=== PATIENT | male | born 1955 | race Caucasian/White ===

== ENCOUNTER 2016-09-21 10:35 | Inpatient (IN) | payer OTHER ==
[~2016-09-21] VITALS: Ht 152.4 cm; Wt 100.0 kg
[~2016-09-21 10:35] MED LIST: ALBU8.5H5 INH; GUAI118L94 PO; IBUP-1542 PO; ZOC20 PO
[2016-09-21] MEDS ORDERED: SOD CHLORIDE 0.9% 1,000 ML IV STA (10:44)
[2016-09-21] MEDS ORDERED: HYDROmorphONE 1 MG/ML SYG IV STA ×2 (10:44→14:41)
[2016-09-21] MEDS ORDERED: ONDANSETRON 4 MG INJ IV STA (10:44)
[2016-09-21 10:46] VITALS: Ht 152.4 cm; Wt 100.0 kg
[2016-09-21] MEDS ORDERED: PANT20TA3 PO (11:30)
[2016-09-21] MEDS ORDERED: GABA300C16 PO (11:30)
[2016-09-21] MEDS ORDERED: BUPR100T14 PO (11:31)
[2016-09-21 11:36] LABS: BASOPHILS % 0.7 % (0.0-2.0); EOSINOPHILS # 0.1 10^3/ul (0.0-0.5); EOSINOPHILS % 1.5 % (0.0-7.0); HEMATOCRIT 46.7 % (42.0-52.0); HEMOGLOBIN 15.6 g/dl (14.0-18.0); LYMPHOCYTES # 1.7 10^3/ul (0.8-2.9); LYMPHOCYTES % 26.6 % (15.0-51.0); MEAN CORPUSCULAR HEMOGLOBIN 33.2 pg (29.0-33.0); MEAN CORPUSCULAR HGB CONC 33.3 g/dl (32.0-37.0); MEAN CORPUSCULAR VOLUME 99.6 fl (82.0-101.0); MEAN PLATELET VOLUME 7.9 fl (7.4-10.4); MONOCYTE # 0.6 10^3/ul (0.3-0.9); NEUTROPHIL # 3.9 10^3/ul (1.6-7.5); NEUTROPHILS % 62.2 % (39.0-77.0); PLATELET COUNT 240 10^3/UL (140-440); RED BLOOD COUNT 4.69 10^6/ul (4.70-6.10); RED CELL DISTRIBUTION WIDTH 13.7 % (11.5-14.5); UNCORRECTED WBC 6.3 10^3/ul (4.8-10.8); WHITE BLOOD COUNT 6.3 10^3/ul (4.8-10.8)
[2016-09-21 11:38] LABS: CONDITION 1
[2016-09-21 11:47] LABS: ALBUMIN 3.6 g/dl (3.3-4.9); POTASSIUM 4.7 mmol/L (3.5-5.1)
[2016-09-21 11:48] LABS: INR 0.9; PROTIME 12.1 Sec (12.2-14.2); PT RATIO 0.9
[2016-09-21 11:49] LABS: CREATININE 0.83 mg/dl (0.61-1.24); PARTIAL THROMBOPLASTIN TIME 29.2 Sec (25.0-35.0)
[2016-09-21 11:50] LABS: ALBUMIN/GLOBULIN RATIO 1.24; BILIRUBIN,INDIRECT 0.1 mg/dl (0-1.1); BILIRUBIN,TOTAL 0.1 mg/dl (0.2-1.3); CALCIUM 9.3 mg/dl (8.4-10.2); TOTAL PROTEIN 6.5 g/dl (6.1-8.1)
--- NOTE | 2016-09-21 12:48 | ERD ---
ER Documentation Chief Complaint Date/Time DATE: 09/21/16 TIME: 12:44 Chief Complaint LOW BACK PAIN FOR 5 DAYS AND MILD ABD PAIN . NO N/V. HIGH BP HPI 61-year-old male who presents the emergency with lumbar back pain. The patient states that he has been diagnosed with hypertension in the past but does not take any medication. He describes atraumatic lumbar back pain that is moderate , paraspinal present for approximately 5 days. Gradual in onset, no bowel or bladder incontinence and retention. No motor weakness. The patient's blood pressure was noted to be in the 200s via EMS. He also describes mild diffuse abdominal discomfort. ROS All systems reviewed and are negative except as per history of present illness. Medications Home Meds Active Scripts Ibuprofen* (Motrin*) 600 Mg Tab, 600 MG PO Q6H Y for PAIN AND OR ELEVATED TEMP, #30 Prov:KATHY OROZCO. [employer] SCHEDULER 03/08/15 Guaifenesin-Codeine Phosphate* (Guaifenesin* with Codeine Liq) 120 Ml Liquid, 5 ML PO Q4H for COUGH, #4 OZ Prov:KATHY OROZCO. FLIGHT [employer]W SCHEDULER 03/08/15 Albuterol Sulfate* (Albuterol Sulfate* HFA) 8.5 Gm Hfa.aer.ad, 2 PUFF INH Q4 Y for SHORTNESS OF BREATH, #1 EA Prov:KATHY OROZCO. FLIGHT [employer]W SCHEDULER 03/08/15 Reported Medications Bupropion Hcl* (Bupropion Hcl*) 100 Mg Tablet, 100 MG PO BID, TAB 09/21/16 Pantoprazole* (Pantoprazole*) 20 Mg Tablet.dr, 20 MG PO AC BREAKFAST, TAB 09/21/16 Gabapentin* (Gabapentin*) 300 Mg Capsule, 300 MG PO BID, #60 CAP 09/21/16 Simvastatin (Simvastatin) 20 Mg Tablet, 20 MG PO DAILY 05/12/13 Allergies Allergies: Coded Allergies: No Known Allergy (Unverified , 05/12/13) PMhx/Soc History of Surgery: Yes (CHOLECYSTECTOMY, RT ANKLE SURGERY W/ 3 SCREWS AND 2 PINS) Anesthesia Reaction: No Hx Neurological Disorder: No Hx Respiratory Disorders: No Hx Cardiac Disorders: Yes Hx Psychiatric Problems: No Hx Miscellaneous Medical Probl: Yes (NEUROPATHY, HYPERCHOLESTEROLEMIA, GERD) Hx Alcohol Use: Yes (OCCASIONAL DRINKER) Hx Substance Use: Yes (MARIJUANA) Hx Tobacco Use: Yes Smoking Status: Current every day smoker FmHx Family History: No diabetes Physical Exam Vitals Vital Signs Date Time Temp Pulse Resp B/P Pulse Ox O2 Delivery O2 Flow Rate FiO2 09/21/16 14:42 69 18 137/94 95 Room Air 09/21/16 10:46 98.6 64 18 144/86 96 Physical Exam General: Well developed, well nourished, no acute distress Head: Normocephalic, atraumatic. Eyes: Pupils equally reactive, EOM intact ENT: Moist mucous membranes Neck: Supple, no lymphadenopathy Respiratory: Lungs clear bilaterally, no distress Cardiovascular: RRR, no murmurs, rubs, or gallops Abdominal: Soft, non-tender, non-distended, no peritoneal signs, no pulsatile mass Back: No midline tenderness deformities or step-offs : Deferred MSK: No edema, no unilateral swelling, 5/5 strength Neurologic: Alert and oriented, moving all extremities, normal speech, no focal weakness, no cerebellar signs Skin: No rash Psych: Normal mood Result Diagram: 09/21/16 1105 09/21/16 1105 Results 24 hrs Laboratory Tests Test 09/21/16 11:05 Activated Partial Thromboplast Time 29.2Sec Alanine Aminotransferase (ALT/SGPT) 31IU/L Albumin 3.6g/dl Albumin/Globulin Ratio 1.24 Alkaline Phosphatase 83IU/L Anion Gap 17 Aspartate Amino Transf (AST/SGOT) 24IU/L Basophils # 0.010^3/ul Basophils % 0.7% Blood Urea Nitrogen 15mg/dl Calcium Level 9.3mg/dl Carbon Dioxide Level 25mmol/L Chloride Level 105mmol/L Creatinine 0.83mg/dl Direct Bilirubin 0.00mg/dl Eosinophils # 0.110^3/ul Eosinophils % 1.5% Globulin 2.90g/dl Glucose Level 96mg/dl Hematocrit 46.7% Hemoglobin 15.6g/dl INR International Normalized Ratio 0.90 Indirect Bilirubin 0.1mg/dl Lipase 214U/L Lymphocytes # 1.710^3/ul Lymphocytes % 26.6% Mean Corpuscular Hemoglobin 33.2pg Mean Corpuscular Hemoglobin Concent 33.3g/dl Mean Corpuscular Volume 99.6fl Mean Platelet Volume 7.9fl Monocytes # 0.610^3/ul Monocytes % 9.0% Neutrophils # 3.910^3/ul Neutrophils % 62.2% Nucleated Red Blood Cells # 0.010^3/ul Nucleated Red Blood Cells % 0.0/100WBC Platelet Count 39762^3/UL Potassium Level 4.7mmol/L Prothrombin Time 12.1Sec Prothrombin Time Ratio 0.9 Red Blood Count 4.6910^6/ul Red Cell Distribution Width 13.7% Sodium Level 142mmol/L Total Bilirubin 0.1mg/dl Total Protein 6.5g/dl White Blood Count 6.310^3/ul Current Medications Medications (Trade) Dose Ordered Sig/Shola Route PRN Reason Start Time Stop Time Status Last Admin Dose Admin Sodium Chloride (NS) 1,000 ml @ 1,000 mls/hr Q1H STAT IV 09/21/16 10:44 09/21/16 11:43 DC 09/21/16 11:15 Hydromorphone HCl (Dilaudid) 1 mg ONCE STAT IV 09/21/16 10:44 09/21/16 10:46 DC 09/21/16 11:16 Ondansetron HCl (Zofran Inj) 4 mg ONCE STAT IV 09/21/16 10:44 09/21/16 10:46 DC 09/21/16 11:15 IV Flush 10 ml 10 ml STK-MED ONCE .ROUTE 09/21/16 13:15 09/21/16 13:16 DC 09/21/16 13:17 Sodium Chloride 100 ml @ ud STK-MED ONCE .ROUTE 09/21/16 13:15 09/21/16 13:16 DC 09/21/16 13:18 Iohexol (Omnipaque) 100 ml @ ud STK-MED ONCE .ROUTE 09/21/16 13:15 09/21/16 13:16 DC 09/21/16 13:18 Hydromorphone HCl (Dilaudid) 1 mg ONCE STAT IV 09/21/16 14:41 09/21/16 14:42 DC 09/21/16 14:46 Procedures/MDM EKG, MONITORS, & DIAGNOSTIC IMAGING: CT abdomen and pelvis IMPRESSION: 1. Scattered atherosclerotic vascular disease including coronary artery calcifications. There are a few tiny distal abdominal aortic penetrating ulcers , the largest measuring up to 4 mm. 2. 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 3. No other evidence of significant arterial pathology in the abdomen or pelvis. Patent visceral and iliac vasculature. 4. Small hiatal hernia. 5. Multifocal bilateral renal cortical scarring. 6. Status post cholecystectomy. 7. Diverticulosis without evidence of diverticulitis. 8. Tiny periumbilical and small bilateral inguinal hernias containing only fat. 9. Status post cholecystectomy. Chest x-ray: I reviewed and interpreted a 1 view of the chest Mediastinum: No enlargement Cardiac silhouette: No cardiomegaly Airspace: Clear lung gustafson bilaterally without evidence of pneumothorax Bones: No evidence of fracture LAB INTERPRETATION: No significant leukocytosis MEDICAL DECISION MAKING: The patient presents with atraumatic lumbar back pain. The pain seems to be reproducible and musculoskeletal in etiology. The patient's low back pain is unlikely related to serious etiology. The patient exhibits no clinical signs or symptoms and has no history or risk factors to suggest cauda equina, cord compression, epidural abscess, epidural hematoma, acute aortic aneurysm or dissection. However, the patient was noted to have significant hypertension in the field. The patient's blood pressure is normalized now. While this is likely a pain response I cannot rule out acute aortic process especially in the setting of patient's described abdominal discomfort. For this reason I believe he would benefit from CT imaging of the abdomen and pelvis. The patient will be provided pain medication. ER COURSE: The patient's CT imaging shows evidence of iliac dissection. The patient has no evidence of decreased vascular flow to the right lower extremity. His pain is well controlled other than a recurrence that is improved with Dilaudid. The patient's heart rate and blood pressure appropriate, no indication for beta- bryce drip at this time. Continue to monitor. I spoke to the vascular surgeon Dr. Darby, he recommends conservative management and evaluation for possible stenting. Medical surgical admission is appropriate. No further directions at this time. I kept the patient and/or family informed of laboratory and diagnostic imaging results throughout the emergency room course. DISPOSITION PLAN: Medical surgical admission CONSULTATION: Accepting care team and consultations: I discussed the current laboratory data, diagnostic imaging and emergency care provided. Admitting team: Dr. Coats Admitting team indication: Insurance directed Consulting services: Vascular surgeon, Dr. Darby Departure Diagnosis: Primary Impression: Iliac artery dissection Condition: Stable BARTOLOME PEREIRA MD Sep 21, 2016 12:48
[2016-09-21] MEDS ORDERED: SOD CHLORIDE 0.9% 100 ML ONE (13:15)
[2016-09-21] MEDS ORDERED: IOHEXOL 100 ML ONE (13:15)
--- NOTE | 2016-09-21 13:37 | RADRPT ---
PROCEDURE: CT Angiography of the Abdomen and Pelvis. CLINICAL INDICATION: Abdominal pain. Evaluate for dissection. . TECHNIQUE: CT scan of the abdomen and pelvis with contrast was performed on a multi-slice slice CT scanner. The patient was scanned following the uncomplicated intravenous administration of 100 cc of Omnipaque 350. Coronal and sagittal reformatted images were obtained from the axial source image s. Three-dimensional reformatting was performed as part of interpretation. Images were reviewed on a high-resolution PACS workstation. The total exam CTDI equals 40.2 mGy and the total exam DLP equal s 972.5 mGy-cm. COMPARISON: None. FINDINGS: ANGIOGRAM: Scattered soft and calcified plaques identified throughout the distal thoracic and abdominal aorta. There is no evidence of aneurysm, dissection, or intramural hematoma. There are a few tiny penetrat ing ulcers of the distal abdominal aorta the largest measuring up to 4 mm. No flow-limiting lesions are seen. There is a subtle short focal dissection of the lateral aspect of the origin of the right common iliac artery. The common, external, and internal iliac arterial system is otherwise widely p atent. The bilateral common and bilateral superficial femoral arteries are widely patent. The celiac artery, superior mesenteric artery, and inferior mesenteric artery are patent. The bilat eral renal arteries are patent. CT ABDOMEN AND PELVIS: There is mild scarring or atelectasis in the lung bases. Heart size is within normal limits. There is no pericardial effusion or pericardial thickening. Coronary artery calcifications are present. There is a small hiatal hernia. The liver, spleen, and pancreas are normal for this phase of contrast. The gallbladder is surgicall y absent. The adrenal glands are symmetric and normal. There is mild to moderate multi focal bilat eral renal cortical scarring. There is otherwise normal symmetric enhancement of the bilateral kidn eys. There is no evidence of renal calculus or obstructive uropathy. There are no enlarged retroper itoneal lymph nodes. There is no evidence of large or small bowel obstruction. Scattered colonic diverticula are present . There is no CT evidence of diverticulitis. There is mild to moderate retained colonic stool. A normal appendix is identified. No free fluid or fluid collections are identified. No inflammatory changes are seen. There is a tiny periumbilical hernia containing only fat. The prostate is mild to moderately enlarged. There is no evidence of pelvic sidewall lymph node enl argement. No pelvic free fluid is seen. The bladder is within normal limits. There are small bila teral inguinal hernias containing only fat. . There is multilevel mild degenerative changes of the distal thoracic and lumbar spine. . IMPRESSION: 1. Scattered atherosclerotic vascular disease including coronary artery calcifications. There are a few tiny distal abdominal aortic penetrating ulcers, the largest measuring up to 4 mm. 2. 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 3. No other evidence of significant arterial pathology in the abdomen or pelvis. Patent visceral a nd iliac vasculature. 4. Small hiatal hernia. 5. Multifocal bilateral renal cortical scarring. 6. Status post cholecystectomy. 7. Diverticulosis without evidence of diverticulitis. 8. Tiny periumbilical and small bilateral inguinal hernias containing only fat. 9. Status post cholecystectomy. RPTAT: HJBF .Damien Mistry MD, Date Time Electronically viewed and signed by .Damien Mistry MD, on 09/21/2016 13:37 .B/
--- NOTE | 2016-09-21 14:54 | RADRPT ---
PROCEDURE: XR Chest. CLINICAL INDICATION: Abdominal pain TECHNIQUE: Chest AP portable. COMPARISON: 03/08/2015 FINDINGS: The mediastinal structures are unremarkable. The heart is normal in size and configuration. The pu lmonary vascularity is normal. The lung gustafson are unremarkable. No consolidation is identified. The pleural spaces are unremarkable. The axial skeleton is unremarkable. IMPRESSION: No active intrathoracic disease. RPTAT: HGDB .Hasmukh Gonzalez MD, MD Date Time Electronically viewed and signed by .Hasmukh Gonzalez MD, MD on 09/21/2016 14:53 .B/
[2016-09-21] MEDS ORDERED: ACETAMINOPHEN 325 MG TAB PO PRN ×2 (15:30→17:00)
[2016-09-21] MEDS ORDERED: ONDANSETRON 4 MG INJ IV PRN ×2 (15:30→17:00)
[2016-09-21] MEDS ORDERED: hydrALAzine 20 MG INJ IV PRN (17:00)
[2016-09-21] MEDS ORDERED: NACL 0.9% 3 ML SYG IV SCH (17:00)
[2016-09-21] MEDS ORDERED: NA PHOSPHATE/BIPHOS 133 ML ENEMA PR PRN (17:00)
[2016-09-21] MEDS: GUAIFENESIN/CODEINE 5ML CUP PO SCH ×2 (17:00→22:21)
[2016-09-21] MEDS ORDERED: ALBUTEROL 18 GM INHALER INH PRN (17:00)
[2016-09-21] MEDS ORDERED: MAGNESIUM HYDROXIDE 30ML CUP PO PRN (17:00)
[2016-09-21] MEDS ORDERED: ALBUTEROL/IPRATROPIUM (NEB) 3 ML AMP HHN PRN (17:00)
[2016-09-21] MEDS ORDERED: NITROGLYCERIN (SL) 0.4 MG TAB SL PRN (17:00)
[2016-09-21] MEDS ORDERED: morphine 2 MG INJ IV PRN (17:00)
[2016-09-21] MEDS ORDERED: LORAZEPAM 2 MG INJ IV PRN (17:00)
[2016-09-21] MEDS ORDERED: DOCUSATE SODIUM 100 MG CAP PO PRN (17:00)
[2016-09-21 17:30] VITALS: BP 130/68; RESP 18
[2016-09-21 17:33] LABS: INR 0.96; PROTIME 12.8 Sec (12.2-14.2)
[2016-09-21 17:34] LABS: PARTIAL THROMBOPLASTIN TIME 29.2 Sec (25.0-35.0)
[2016-09-21 17:36] LABS: CREATINE KINASE 61 IU/L (23-200)
[2016-09-21 17:47] LABS: CK-MB 0.81 ng/ml (0.0-2.4)
[2016-09-21 17:49] LABS: TROPONIN-I < 0.012 ng/ml (0.00-0.12)
[2016-09-21 18:04] VITALS: BP 134/66; PULSE 59; RESP 18
[2016-09-21] MEDS: SOD CHLORIDE 0.45% 1,000 ML IV SCH (18:30)
[2016-09-21] MEDS ORDERED: GLUCAGON 1 MG INJ IM PRN (20:00)
[2016-09-21] MEDS ORDERED: GLUCOSE GEL 15 GRAM TUBE BUCCAL PRN (20:00)
[2016-09-21] MEDS ORDERED: GLUCOSE GEL 15 GRAM TUBE PO PRN ×2 (20:00)
[2016-09-21] MEDS ORDERED: DEXTROSE 50% 50 ML SYRINGE IV PRN ×2 (20:00)
--- NOTE | 2016-09-21 20:10 | HP ---
DATE OF ADMISSION: 09/21/2016 CHIEF COMPLAINT: Low back pain. HISTORY OF PRESENT ILLNESS: A 61-year-old male with past medical history of GERD, hypertension, and diabetes type 2 who presents with 4 to 5 days of low back pain. He has also been having decreased ambulation ability. He denies any trauma to the back area. He has had prior history of low back pa in, but it has self-resolved apparently. No nausea, no vomiting. He has had mild constipation, but no upper or lower GI bleeding, no fevers or chills, no headaches or dizziness or loss of consciousn ess. No chest pain or shortness of breath. No diarrhea obviously. When he came to the ER, he was found with hypertensive urgency. He also had an imaging study performed, an abdominal angiogram, as there was a concern about possible dissection. He was, in fact, found with a subtle short focal di ssection of the proximal right common iliac artery and the vascular surgeon was called to come and e valuate the patient as well. He denies any lower extremity weakness, no numbness or tingling down t he legs. No bowel or bladder incontinence. He has had mild abdominal discomfort, but no overt pain . PAST MEDICAL HISTORY: As stated above. ALLERGIES: NO KNOWN DRUG ALLERGIES. HOME MEDICATIONS: 1. Motrin 600 mg q.6h. p.r.n. 2. Guaifenesin with codeine q.4h. p.r.n. 3. Albuterol HFA 2 puffs inhaled q.4h. p.r.n. 4. Bupropion 100 mg b.i.d. 5. Protonix 20 mg with breakfast. 6. Gabapentin 300 mg b.i.d. 7. Simvastatin 20 mg daily. PAST SURGICAL HISTORY: Cholecystectomy in the past, right ankle surgery in the past. SOCIAL HISTORY: He smokes weed occasionally. Drinks alcohol occasionally. He does smoke 4 to 5 ci garettes daily for the past 17 years. PHYSICAL EXAMINATION: VITAL SIGNS: T-max 98.6, pulse 64 to 69, respirations 18, blood pressure 137/94, saturating at 95% on room air. GENERAL: The patient is lying in bed, answering questions appropriately. No acute distress. HEENT: Pupils equal, round, react to light. Extraocular muscles intact. NECK: Supple. No thyromegaly. LUNGS: Clear to auscultation bilaterally. CARDIOVASCULAR: S1, S2 heard. No rubs or gallops. ABDOMEN: Soft, nontender. Slightly distended, slightly firm, but no rebound or guarding. Normal b owel sounds. MUSCULOSKELETAL: No lower extremity edema bilaterally. NEUROLOGIC: No focal deficits. No loss of sensation in upper or lower extremities bilaterally. LABORATORIES: CBC is completely normal. The comprehensive metabolic panel is normal. Troponin is negative as well. Lipase is normal. Coags are normal. IMAGING: Again, the CT abdominal angiogram showed the results as mentioned above in the HPI. There are also a few tiny distal abdominal aortic penetrating ulcers, largest measuring up to 4 mm, multi focal bilateral renal cortical scarring, small hiatal hernia, otherwise patent visceral and iliac va sculature, status post cholecystectomy, diverticulosis, but no diverticulitis, tiny periumbilical an d small bilateral inguinal hernias containing only fat. Chest x-ray: No active intrathoracic disea se. ASSESSMENT AND PLAN: A 61-year-old male coming in with low back pain for 4 to 5 days with signs of right iliac artery dissection. 1. Low back pain. Unclear source. Could be secondary to the dissection, although it is small. Th e patient does have a history of what looks like chronic back pain as well. For now, will get a vas cular surgery consult, admit him to med/surg floor. Give him pain control medications with [place] an d morphine p.r.n. as well. Hold all NSAID, given the possible dissection. The patient was explaine d the possible medical options including medical management for now versus possible stent placement. Will discuss with vascular surgery team. Check TSH, A1c, lipid panel as well. 2. Diabetes type 2. Again, check A1c, as well. Will put him on sliding scale insulin. 3. Hypertension. Again, he came in with hypertensive urgency. Blood pressure is presently stable now. Continue current medications as well. 4. History of gastroesophageal reflux disease. Again, put him on PPI. 5. Gastrointestinal prophylaxis, PPI. 6. Deep venous thrombosis prophylaxis. Again, avoid all anticoagulants. Put him on SCDs for now. 7. History of depression. The patient was somewhat tearful at the end of my HPI. He does state a history of depression. His mother recently as well. He does take bupropion as well for depression, so will consider getting a tele psych consult as well after the vascular surgery issues are discussed first. Dictated By: CLYDE RIOS Conf#: [id number] DID#: [id number]
[2016-09-21 20:15] VITALS: BP 136/74; RESP 18
[2016-09-21] MEDS ORDERED: INSULIN ASPART [NOVOLOG] 3 ML PEN SC SCH (21:00)
[2016-09-21] MEDS: SIMVASTATIN 20 MG TAB PO SCH (21:00)
[2016-09-21] MEDS: INSULIN ASPART [NOVOLOG] 3 ML PEN SC SCH (21:00)
[2016-09-21] MEDS: GABAPENTIN 300 MG CAP PO SCH (22:21)
[2016-09-21] MEDS: SENNA TAB PO SCH (22:21)
[2016-09-21] MEDS: BUPROPION 100 MG TAB PO SCH (22:21)
[2016-09-21] MEDS: HYDROCODONE/APAP (5/325) TAB PO PRN (22:22)
[2016-09-21 22:54] LABS: CREATINE KINASE 50 IU/L (23-200)
[2016-09-21 23:27] LABS: CK-MB 0.72 ng/ml (0.0-2.4); TROPONIN-I < 0.012 ng/ml (0.00-0.12)
[2016-09-22] MEDS: GUAIFENESIN/CODEINE 5ML CUP PO SCH ×6 (01:00→21:37)
[2016-09-22] MEDS: ACCUCHECK XX SCH (01:35)
[2016-09-22] MEDS: PANTOPRAZOLE (EC) 40 MG TAB PO SCH (05:09)
[2016-09-22] MEDS: SOD CHLORIDE 0.45% 1,000 ML IV SCH ×2 (05:09→06:53)
[2016-09-22] MEDS: DOCUSATE SODIUM 100 MG CAP PO SCH ×2 (05:09→17:16)
[2016-09-22 05:28] LABS: BASOPHILS % 0.8 % (0.0-2.0); EOSINOPHILS # 0.1 10^3/ul (0.0-0.5); EOSINOPHILS % 1.5 % (0.0-7.0); HEMATOCRIT 44.9 % (42.0-52.0); HEMOGLOBIN 15.1 g/dl (14.0-18.0); LYMPHOCYTES # 1.5 10^3/ul (0.8-2.9); LYMPHOCYTES % 27.8 % (15.0-51.0); MEAN CORPUSCULAR HEMOGLOBIN 33.7 pg (29.0-33.0); MEAN CORPUSCULAR HGB CONC 33.7 g/dl (32.0-37.0); MEAN PLATELET VOLUME 7.8 fl (7.4-10.4); MONOCYTE # 0.5 10^3/ul (0.3-0.9); MONOCYTES % 9.7 % (0.0-11.0); NEUTROPHIL # 3.3 10^3/ul (1.6-7.5); NEUTROPHILS % 60.2 % (39.0-77.0); PLATELET COUNT 236 10^3/UL (140-440); RED BLOOD COUNT 4.49 10^6/ul (4.70-6.10); RED CELL DISTRIBUTION WIDTH 13.9 % (11.5-14.5); UNCORRECTED WBC 5.5 10^3/ul (4.8-10.8); WHITE BLOOD COUNT 5.5 10^3/ul (4.8-10.8)
[2016-09-22 05:35] LABS: CONDITION 1
[2016-09-22 05:46] LABS: POTASSIUM 4.2 mmol/L (3.5-5.1)
[2016-09-22 05:49] LABS: CREATININE 0.9 mg/dl (0.61-1.24)
[2016-09-22 05:50] LABS: CALCIUM 8.8 mg/dl (8.4-10.2); CHOL/HDL RATIO 6.9 RATIO; MAGNESIUM 1.8 mg/dl (1.7-2.5); PHOSPHORUS 4.9 mg/dl (2.5-4.9)
[2016-09-22 06:10] LABS: THYROID STIMULATING HORMONE 1.85 MIU/L (0.465-4.680)
[2016-09-22] MEDS ORDERED: INSULIN ASPART [NOVOLOG] 3 ML PEN SC SCH (07:20)
[2016-09-22] MEDS: INSULIN ASPART [NOVOLOG] 3 ML PEN SC SCH ×4 (07:20→21:00)
[2016-09-22 08:10] VITALS: BP 131/77; RESP 19
[2016-09-22] MEDS: BUPROPION 100 MG TAB PO SCH ×2 (08:59→21:37)
[2016-09-22] MEDS: GABAPENTIN 300 MG CAP PO SCH ×2 (09:00→21:37)
[2016-09-22] MEDS: SENNA TAB PO SCH ×2 (09:00→21:37)
[2016-09-22] MEDS ORDERED: NON-FORMULARY/PATIENT OWN MED (Simvastatin 20 MG) PO SCH (09:00)
--- NOTE | 2016-09-22 11:22 | RADRPT ---
Echocardiogram Report Patient Name: DANETTE CARTER Gender: Male Date: 1955 Study Date: 22-Sep-2016 [employer] Cutting Machine Operator: Sonia Frazier RDCS Location: Ref. Physician: CLYDE LOWE Quality: Good Procedures: Transthoracic echocardiogram with complete 2D, M-Mode, and doppler examination. Indications: Chest Pain. 2D/M Mode Doppler Measurement Value Normal Ranges Measurement Value Normal Ranges LVIDd 2D 4.6 3.5 - 5.6 cm AV Peak [place] 0.9 m/sec LVIDs 2D 2.8 2.1 - 4.1 cm AV Peak PG 3.0 mmHg LVPWd 2D 0.9 0.6 - 1.1 cm LVOT Peak [place] 0.8 m/sec IVSd 2D 0.9 0.6 - 1.1 cm LVOT Peak PG 2.3 mmHg AoR Diam 2D 2.8 2.0 - 3.7 cm MV E Peak [place] 0.5 m/sec EDV 2D 96.8 cm3 MV A Peak [place] 0.7 m/sec ESV 2D 21.5 cm3 MV E/A 0.7 LA Dimen 2D 3.8 2.3 - 4.0 cm MV Decel Time 246 msec MV Decel [place] 2 MV E/A 0.7 Findings Left Ventricle: Normal left ventricular systolic function. Normal left ventricular cavity size. Normal left ventricular wall thickness. Ejection fraction is visually estimated at 65 %. Tissue Doppler/Mitral Doppler indices are consistent with impaired relaxation (Stage I diastolic dysfunction). Right Ventricle: Normal right ventricular size. Normal right ventricular systolic function. Left Atrium: The left atrium is normal in size. Right Atrium: The right atrium is normal in size. Mitral Valve: Normal appearance and function of the mitral valve with trace physiologic regurgitation. Aortic Valve: Normal appearance of the aortic valve. No significant aortic stenosis or insufficiency. Tricuspid Valve: Normal appearance and function of the tricuspid valve with trace physiologic regurgitation. Pericardium: Normal pericardium with no significant pericardial effusion. Aorta: Normal aortic root. IVC: Normal size and normal respiratory collapse consistent with normal right atrial pressure. Conclusions 1.Normal left ventricular systolic function. Normal left ventricular cavity size. Normal left ventricular wall thickness. Ejection fraction is visually estimated at 65 %. Tissue Doppler/Mitral Doppler indices are consistent with impaired relaxation (Stage I diastolic dysfunction). 2.Normal appearance and function of the mitral valve with trace physiologic regurgitation. 3.Normal appearance of the aortic valve. No significant aortic stenosis or insufficiency. 4.Normal appearance and function of the tricuspid valve with trace physiologic regurgitation. Electronically Signed By: Fabrizio Walton 22-Sep-2016 11:21:26 -0800 Patient Name: DANETTE CARTER Study Date: 22-Sep-[id number]
--- NOTE | 2016-09-22 11:42 | PN ---
Date/Time of Note Date/Time of Note DATE: 09/22/16 TIME: 11:38 Assessment/Plan VTE Prophylaxis VTE Prophylaxis Intervention: SCD's Lines/Catheters IV Catheter Type (from Nrsg): Peripheral IV Assessment/Plan Chief Complaint/Hosp Course ASSESSMENT AND PLAN: 61-year-old male coming in with low back pain for 4 to 5 days with signs of right iliac artery dissection. 1. Low back pain. Unclear source. Could be secondary to the dissection, although it appears relatively small on imaging study. The patient does have a history of what looks like chronic back pain as well. - f/u vascular surgery consult rec's, admit him to med/surg floor. - pain control medications with [place] and morphine p.r.n. as well. - Hold all NSAID, given the possible dissection. - The patient was explained the possible medical options including medical management for now versus possible stent placement. Will discuss with vascular surgery team - f/u TSH, A1c, lipid panel as well. - will start muscle relaxant, consider pain mngt consult as well if not improved. 2. Diabetes type 2 - f/u A1c, as well, continue sliding scale insulin. 3. Hypertension. Again, he came in with hypertensive urgency. Blood pressure is presently stable now. - Continue current medications as well. 4. History of gastroesophageal reflux disease - PPI. 5. Gastrointestinal prophylaxis, PPI. 6. Deep venous thrombosis prophylaxis. Again, avoid all anticoagulants - SCDs for now. 7. History of depression. The patient was somewhat tearful at the end of my HPI. He does state a history of depression. His mother recently as well. He does take bupropion as well for depression, - will get tele psych consult as well after the vascular surgery issues are discussed first. Problems: Subjective 24 Hr Interval Summary Free Text/Dictation Pt worked with PT today, but still having some LBP. Awaiting vasc surgery consult as well. Exam/Review of Systems Vital Signs Vitals Vital Signs Date Time Temp Pulse Resp B/P Pulse Ox O2 Delivery O2 Flow Rate FiO2 09/22/16 08:10 97.9 60 19 131/77 98 09/21/16 18:04 Room Air Intake and Output 09/21/16 09/21/16 09/22/16 15:00 23:00 07:00 Intake Total 1740 ml Output Total 700 ml Balance 1040 ml Exam GENERAL: The patient is lying in bed, answering questions appropriately. Mild distress HEENT: Pupils equal, round, react to light. Extraocular muscles intact. NECK: Supple. No thyromegaly. LUNGS: Clear to auscultation bilaterally. CARDIOVASCULAR: S1, S2 heard. No rubs or gallops. ABDOMEN: Soft, nontender. Slightly distended, slightly firm, but no rebound or guarding. Normal bowel sounds. MUSCULOSKELETAL: No lower extremity edema bilaterally. NEUROLOGIC: No focal deficits. No loss of sensation in upper or lower extremities bilaterally. Results Result Diagram: 09/22/16 0416 09/22/16 0416 Results 24 hrs Laboratory Tests Test 09/21/16 16:59 09/21/16 20:42 09/21/16 22:33 09/22/16 04:16 Activated Partial Thromboplast Time 29.2 Creatine Kinase 61 50 Creatine Kinase Index 1.3 1.4 Creatinine Kinase MB (Mass) 0.81 0.72 Free Thyroxine 0.91 INR International Normalized Ratio 0.96 Prothrombin Time 12.8 Prothrombin Time Ratio 1.0 Troponin I < 0.012 < 0.012 Bedside Glucose 110 Anion Gap 14 Basophils # 0.0 Basophils % 0.8 Blood Urea Nitrogen 14 Calcium Level 8.8 Carbon Dioxide Level 28 Chloride Level 102 Cholesterol Level 194 Cholesterol/HDL Ratio 6.9 Creatinine 0.90 Eosinophils # 0.1 Eosinophils % 1.5 Glucose Level 97 HDL Cholesterol 28 L Hematocrit 44.9 Hemoglobin 15.1 Hemoglobin A1c 6.4 H LDL Cholesterol, Calculated 132 Lymphocytes # 1.5 Lymphocytes % 27.8 Magnesium Level 1.8 Mean Corpuscular Hemoglobin 33.7 H Mean Corpuscular Hemoglobin Concent 33.7 Mean Corpuscular Volume 100.0 Mean Platelet Volume 7.8 Monocytes # 0.5 Monocytes % 9.7 Neutrophils # 3.3 Neutrophils % 60.2 Nucleated Red Blood Cells # 0.0 Nucleated Red Blood Cells % 0.0 Phosphorus Level 4.9 Platelet Count 236 Potassium Level 4.2 Red Blood Count 4.49 L Red Cell Distribution Width 13.9 Sodium Level 140 Thyroid Stimulating Hormone (TSH) 1.850 Triglycerides Level 168 H White Blood Count 5.5 Test 09/22/16 07:55 Bedside Glucose 107 Medications Medications Current Medications Ondansetron HCl (Zofran Inj) 4 mg Q6H PRN IV NAUSEA AND/OR VOMITING; Start 09/21 at 17:00 Acetaminophen (Tylenol Tab) 650 mg Q6H PRN PO PAIN LEVEL 1-3 OR FEVER; Start at 17:00 Acetaminophen/ Hydrocodone Bitart ([place] (5/325)) 1 tab Q6H PRN PO MODERATE PAIN LEVEL 4-6 Last administered on 09/21/16 22:22; Admin Dose 1 TAB; Start 09/21 at 17:00 Morphine Sulfate (morphine) 2 mg Q4H PRN IV SEVERE PAIN LEVEL 7-10 Last administered on 09/22/16 08:58; Admin Dose 2 MG; Start 09/21/16 at 17:00 Magnesium Hydroxide (Milk Of Mag) 30 ml DAILY PRN PO CONSTIPATION; Start at 17:00 Sodium Biphosphate/ Sodium Phosphate (Fleet Enema) 133 ml DAILY PRN [place] CONSTIPATION; Start 09/21/16 at 17:00 Pantoprazole 40 mg 40 mg DAILY@06 PO Last administered on 09/22/16 05:09; Admin Dose 40 MG; Start 09/22/16 at 06:00 Sodium Chloride (1/2 NS) 1,000 ml @ 75 mls/hr [id number] IV Last administered on 09/22/16 06:53; Admin Dose 75 MLS/HR; Start 09/21/16 at 16:35 Lorazepam (Ativan) 0.5 mg Q6H PRN IV ANXIETY; Start 09/21/16 at 17:00 Hydralazine HCl (Apresoline) 10 mg Q6H PRN IV ELEVATED BLOOD PRESSURE; Start at 17:00 Clonidine (Catapres) 0.1 mg Q6H PRN PO ELEVATED BLOOD PRESSURE; Start 09/21/16 at 17:00 Nitroglycerin (Nitroglycerin (Sl Tab) 0.4 Mg) 1 tab Q5M PRN SL ANGINA; Start at 17:00 Albuterol (Ventolin Hfa) 2 puff Q4 PRN INH SHORTNESS OF BREATH; Start 09/21/16 at 17:00 Bupropion HCl (Wellbutrin) 100 mg BID PO Last administered on 09/22/16 08:59; Admin Dose 100 MG; Start 09/21/16 at 21:00 Gabapentin (Neurontin) 300 mg BID PO Last administered on 09/22/16 09:00; Admin Dose 300 MG; Start 09/21/16 at 21:00 Guaifenesin/ Codeine Phosphate (Robitussin Ac Liquid Cup) 5 ml Q4H PO Last administered on 09/22/16 05:08; Admin Dose 5 ML; Start 09/21/16 at 17:00 Simvastatin (Zocor) 20 mg HS PO Last administered on 09/21/16 21:00; Admin Dose 20 MG; Start 09/21/16 at 21:00 Influenza Virus Vaccine (Fluzone) 0.5 ml ONCE ONCE IM* ; Start 09/23/16 at 09:00 ; Stop 09/23/16 at 09:01 Docusate Sodium (Colace) 100 mg Q12H PO Last administered on 09/22/16 05:09; Admin Dose 100 MG; Start 09/22/16 at 05:00 Senna (Senokot) 1 tab BID PO Last administered on 09/22/16 09:00; Admin Dose 1 TAB; Start 09/21/16 at 21:00 Diagnostic Test (Pha) (Accucheck) 1 ea 02 XX ; Start 09/22/16 at 02:00 Miscellaneous Information 1 ea NOTE XX ; Start 09/21/16 at 20:00 Glucose (Glutose) 15 gm Q15M PRN PO DECREASED GLUCOSE; Start 09/21/16 at 20:00 Glucose (Glutose) 22.5 gm Q15M PRN PO DECREASED GLUCOSE; Start 09/21/16 at 20:00 Dextrose (D50w Syringe) 25 ml Q15M PRN IV DECREASED GLUCOSE; Start 09/21/16 at 20:00 Dextrose (D50w Syringe) 50 ml Q15M PRN IV DECREASED GLUCOSE; Start 09/21/16 at 20:00 Glucagon (Glucagen) 1 mg Q15M PRN IM DECREASED GLUCOSE; Start 09/21/16 at 20:00 Glucose (Glutose) 15 gm Q15M PRN BUCCAL DECREASED GLUCOSE; Start 09/21/16 at 20: 00 Cyclobenzaprine HCl (Flexeril) 10 mg TID PO ; Start 09/22/16 at 13:00; Status CLYDE AVILA Sep 22, 2016 11:42
[2016-09-22] MEDS: CYCLOBENZAPRINE 10 MG TAB PO SCH ×2 (12:29→21:38)
--- NOTE | 2016-09-22 16:34 | CONS ---
DATE OF ADMISSION: 09/21/2016 DATE OF CONSULTATION: REASON FOR CONSULTATION: Aortic dissection. HISTORY OF PRESENT ILLNESS: This is a _[id number] male who was admitted because of pain that was experienced in the back for the past 5 days. The patient is currently disabled because of an ankle injury in the past. Part of his workup has included a CAT scan of the abdomen which showed a possib le small focal tiny abdominal aortic penetrating ulcer with a dissection in the right common iliac a rtery. Patient has a strong right femoral pulse with no signs of ischemia. PAST MEDICAL HISTORY: Significant for hypertension, chronic pain syndrome, GERD. PAST SURGICAL HISTORY: Positive for ankle surgery. MEDICATIONS: List was reviewed which includes: 1. Zofran. 2. Clonidine. 3. Dilaudid. 4. Robitussin. 5. Protonix. PHYSICAL EXAMINATION: VITAL SIGNS: Blood pressure is 134/66, pulse is 59, respirations 18, saturations 98% on room air, t emperature is 98.2. HEENT: Normocephalic, atraumatic. PERRLA. NECK: Supple. No JVD, no carotid bruits. CARDIOVASCULAR: Regular rate and rhythm. LUNGS: Clear. ABDOMEN: Soft. EXTREMITIES: Warm all the way down to the toes. There are palpable femoral, popliteal and pedal pu lses. No signs of ischemia. LABORATORY VALUES: Significant for a white count of 6.3, hemoglobin is 15.6, platelet count is 240, normal coagulation factors and a creatinine of 0.83. IMPRESSION: 1. Aortic ulceration. 2. Right focal small iliac dissection. RECOMMENDATIONS: Would continue blood pressure control. No plan for surgery at this time. The pat ient will need an elective angiogram with possible stenting of the iliac artery. Discussed with the patient, will discuss with the referring physicians. Dictated By: MAY COOPER/MUNA Conf#: [id number] DID#: [id number]
--- NOTE | 2016-09-22 16:42 | CONS ---
DATE OF ADMISSION: 09/21/2016 DATE OF CONSULTATION: 09/22/2016 HISTORY OF PRESENT ILLNESS: This is a 61-year-old male with a history of GERD, hypertension, diabet es, admitted with a 5-day history of pain in the back. Patient subsequently had a CT angiogram whic h showed a small localized right iliac artery dissection. No evidence of any bleeding. On physical exam, the patient had a strong right femoral pulse. PAST MEDICAL HISTORY: Hypertension, hyperlipidemia, GERD. MEDICATIONS: 1. Motrin. 2. Albuterol. 3. Protonix. 4. Gabapentin. 5. Simvastatin. PAST SURGICAL HISTORY: Cholecystectomy. ALLERGIES: NONE. SOCIAL HISTORY: Positive for smoking. Drinks alcohol occasionally. REVIEW OF SYSTEMS: Negative. PHYSICAL EXAMINATION: VITAL SIGNS: Blood pressure is 131/77, pulse is 60, respirations 19, saturations 98% on room air, t emperature is 97.9. HEENT: Normocephalic, atraumatic. PERRLA. NECK: Supple. No JVD, no carotid bruits. CARDIOVASCULAR: Normal S1, S2. LUNGS: Clear. ABDOMEN: Soft. EXTREMITIES: Warm. There is palpable femoral, popliteal pedal pulses. No signs of ischemia. LABORATORY VALUES: Significant for hemoglobin of 15.1, which is stable. IMPRESSION: Right iliac artery dissection. No signs of any bleeding at the present time. We will continue present care and monitor. No plan for surgery at this time. Dictated By: MAY COOPER/MUNA Conf#: [id number] DID#: [id number]
[2016-09-22 19:59] VITALS: BP 156/74; RESP 20
[2016-09-22 20:00] VITALS: BP 136/74
[2016-09-22] MEDS: SIMVASTATIN 20 MG TAB PO SCH (21:37)
[2016-09-23] MEDS: GUAIFENESIN/CODEINE 5ML CUP PO SCH ×6 (00:39→21:00)
[2016-09-23] MEDS: ACCUCHECK XX SCH (02:00)
[2016-09-23] MEDS: DOCUSATE SODIUM 100 MG CAP PO SCH ×2 (05:15→17:00)
[2016-09-23] MEDS: PANTOPRAZOLE (EC) 40 MG TAB PO SCH (05:15)
[2016-09-23 05:32] LABS: POTASSIUM 4.4 mmol/L (3.5-5.1)
[2016-09-23 05:34] LABS: CREATININE 0.94 mg/dl (0.61-1.24)
[2016-09-23 05:35] LABS: CALCIUM 9.1 mg/dl (8.4-10.2)
[2016-09-23 05:39] LABS: BASOPHILS % 0.5 % (0.0-2.0); EOSINOPHILS # 0.1 10^3/ul (0.0-0.5); EOSINOPHILS % 1.8 % (0.0-7.0); HEMATOCRIT 48.8 % (42.0-52.0); HEMOGLOBIN 16.1 g/dl (14.0-18.0); LYMPHOCYTES % 25.1 % (15.0-51.0); MEAN CORPUSCULAR HEMOGLOBIN 33.1 pg (29.0-33.0); MEAN CORPUSCULAR HGB CONC 33.1 g/dl (32.0-37.0); MEAN PLATELET VOLUME 8.1 fl (7.4-10.4); MONOCYTE # 0.6 10^3/ul (0.3-0.9); MONOCYTES % 7.6 % (0.0-11.0); NEUTROPHIL # 5.1 10^3/ul (1.6-7.5); PLATELET COUNT 233 10^3/UL (140-440); RED BLOOD COUNT 4.88 10^6/ul (4.70-6.10); RED CELL DISTRIBUTION WIDTH 13.5 % (11.5-14.5); UNCORRECTED WBC 7.8 10^3/ul (4.8-10.8); WHITE BLOOD COUNT 7.8 10^3/ul (4.8-10.8)
[2016-09-23 05:44] LABS: CONDITION 1
[2016-09-23] MEDS: INSULIN ASPART [NOVOLOG] 3 ML PEN SC SCH ×4 (07:20→21:00)
[2016-09-23 07:36] VITALS: BP 153/86; RESP 20
[2016-09-23] MEDS: SOD CHLORIDE 0.45% 1,000 ML IV SCH ×2 (08:35→21:11)
[2016-09-23] MEDS: BUPROPION 100 MG TAB PO SCH ×2 (08:47→21:10)
[2016-09-23] MEDS: CYCLOBENZAPRINE 10 MG TAB PO SCH ×3 (08:47→21:10)
[2016-09-23] MEDS: GABAPENTIN 300 MG CAP PO SCH ×2 (08:47→21:09)
[2016-09-23] MEDS: SENNA TAB PO SCH ×2 (08:47→21:09)
[2016-09-23] MEDS ORDERED: INFLUENZA VIRUS VACCINE 0.5 ML (DISPENSING) IM* ONE (09:00)
--- NOTE | 2016-09-23 11:53 | PN ---
Date/Time of Note Date/Time of Note DATE: 09/23/16 TIME: 11:49 Assessment/Plan VTE Prophylaxis VTE Prophylaxis Intervention: SCD's Lines/Catheters IV C[facility]ter Type (from [facility]): Peripheral IV Urinary Cath still in place: No Assessment/Plan Chief Complaint/Hosp Course ASSESSMENT AND PLAN: 61-year-old male coming in with low back pain for 4 to 5 days with signs of right iliac artery dissection. 1. Low back pain. Unclear source. Could be secondary to the dissection, although it appears relatively small on imaging study. The patient does have a history of what looks like chronic back pain as well. - f/u vascular surgery consult rec's, med/surg floor care - pain control medications with [place] and morphine p.r.n. as well. - Hold all NSAID, given the possible dissection. - The patient was explained the possible medical options including medical management for now versus possible stent placement. Per [facility] surgery team, medical mngt for now. - continue flexeril at lower dose TID today, consider pain mngt consult as well if not improved. 2. Diabetes type 2 - A1c = 6.4 - continue sliding scale insulin. 3. Hypertension. Again, he came in with hypertensive urgency. Blood pressure is presently stable now. - Continue current medications as well. 4. History of gastroesophageal reflux disease - PPI. 5. Gastrointestinal prophylaxis, PPI. 6. Deep venous thrombosis prophylaxis. Again, avoid all anticoagulants - SCDs for now. 7. History of depression. The patient was somewhat tearful at the end of my HPI. He does state a history of depression. His mother recently as well. He does take bupropion as well for depression, -awaiting tele psych consult - pending Problems: Subjective 24 Hr Interval Summary Free Text/Dictation Pt has less pain after muscle relaxant added, seen by [facility] surgery team as well. Awaiting tele psych. Exam/Review of Systems Vital Signs Vitals Vital Signs Date Time Temp Pulse Resp B/P Pulse Ox O2 Delivery O2 Flow Rate FiO2 09/23/16 07:36 97.8 63 20 153/86 95 09/22/16 20:00 Room Air 09/22/16 14:00 21 Intake and Output 09/22/16 09/22/16 09/23/16 15:00 23:00 07:00 Intake Total 1990 ml 1700 ml Output Total 1600 ml 1500 ml Balance 390 ml 200 ml Exam GENERAL: The patient is lying in bed, answering questions appropriately. less distress HEENT: Pupils equal, round, react to light. Extraocular muscles intact. NECK: Supple. No thyromegaly. LUNGS: Clear to auscultation bilaterally. CARDIOVASCULAR: S1, S2 heard. No rubs or gallops. ABDOMEN: Soft, nontender. Slightly distended, slightly firm, but no rebound or guarding. Normal bowel sounds. MUSCULOSKELETAL: No lower extremity edema bilaterally. NEUROLOGIC: No focal deficits. No loss of sensation in upper or lower extremities bilaterally. Results Result Diagram: 09/23/16 0435 09/23/16 0435 Results 24 hrs Laboratory Tests Test 09/22/16 11:51 09/22/16 16:43 09/22/16 21:36 09/23/16 04:35 Bedside Glucose 153 142 155 Anion Gap 16 Basophils # 0.0 Basophils % 0.5 Blood Urea Nitrogen 17 Calcium Level 9.1 Carbon Dioxide Level 25 Chloride Level 104 Creatinine 0.94 Eosinophils # 0.1 Eosinophils % 1.8 Glucose Level 106 Hematocrit 48.8 Hemoglobin 16.1 Lymphocytes # 2.0 Lymphocytes % 25.1 Mean Corpuscular Hemoglobin 33.1 H Mean Corpuscular Hemoglobin Concent 33.1 Mean Corpuscular Volume 100.0 Mean Platelet Volume 8.1 Monocytes # 0.6 Monocytes % 7.6 Neutrophils # 5.1 Neutrophils % 65.0 Nucleated Red Blood Cells # 0.0 Nucleated Red Blood Cells % 0.0 Platelet Count 233 Potassium Level 4.4 Red Blood Count 4.88 Red Cell Distribution Width 13.5 Sodium Level 141 White Blood Count 7.8 # Test 09/23/16 07:42 09/23/16 11:47 Bedside Glucose 137 131 Medications Medications Current Medications Ondansetron HCl (Zofran Inj) 4 mg Q6H PRN IV NAUSEA AND/OR VOMITING; Start 09/21 at 17:00 Acetaminophen (Tylenol Tab) 650 mg Q6H PRN PO PAIN LEVEL 1-3 OR FEVER; Start at 17:00 Acetaminophen/ Hydrocodone Bitart ([place] (5/325)) 1 tab Q6H PRN PO MODERATE PAIN LEVEL 4-6 Last administered on 09/21/16t 22:22; Admin Dose 1 TAB; Start 09/21 at 17:00 Morphine Sulfate (morphine) 2 mg Q4H PRN IV SEVERE PAIN LEVEL 7-10 Last administered on 09/22/16 08:58; Admin Dose 2 MG; Start 09/21/16 at 17:00 Magnesium Hydroxide (Milk Of Mag) 30 ml DAILY PRN PO CONSTIPATION; Start at 17:00 Sodium Biphosphate/ Sodium Phosphate (Fleet Enema) 133 ml DAILY PRN [place] CONSTIPATION; Start 09/21/16 at 17:00 Pantoprazole 40 mg 40 mg DAILY@06 PO Last administered on 09/23/16 05:15; Admin Dose 40 MG; Start 09/22/16 at 06:00 Sodium Chloride (1/2 NS) 1,000 ml @ 75 mls/hr [id number] IV Last administered on 09/22/16 06:53; Admin Dose 75 MLS/HR; Start 09/21/16 at 16:35 Lorazepam (Ativan) 0.5 mg Q6H PRN IV ANXIETY; Start 09/21/16 at 17:00 Hydralazine HCl (Apresoline) 10 mg Q6H PRN IV ELEVATED BLOOD PRESSURE; Start at 17:00 Clonidine (Catapres) 0.1 mg Q6H PRN PO ELEVATED BLOOD PRESSURE; Start 09/21/16 at 17:00 Nitroglycerin (Nitroglycerin (Sl Tab) 0.4 Mg) 1 tab Q5M PRN SL ANGINA; Start at 17:00 Albuterol (Ventolin Hfa) 2 puff Q4 PRN INH SHORTNESS OF BREATH; Start 09/21/16 at 17:00 Bupropion HCl (Wellbutrin) 100 mg BID PO Last administered on 09/23/16 08:47; Admin Dose 100 MG; Start 09/21/16 at 21:00 Gabapentin (Neurontin) 300 mg BID PO Last administered on 09/23/16 08:47; Admin Dose 300 MG; Start 09/21/16 at 21:00 Guaifenesin/ Codeine Phosphate (Robitussin Ac Liquid Cup) 5 ml Q4H PO Last administered on 09/23/16 05:15; Admin Dose 5 ML; Start 09/21/16 at 17:00 Simvastatin (Zocor) 20 mg HS PO Last administered on 09/22/16 21:37; Admin Dose 20 MG; Start 09/21/16 at 21:00 Docusate Sodium (Colace) 100 mg Q12H PO Last administered on 09/23/16 05:15; Admin Dose 100 MG; Start 09/22/16 at 05:00 Senna (Senokot) 1 tab BID PO Last administered on 09/23/16 08:47; Admin Dose 1 TAB; Start 09/21/16 at 21:00 Diagnostic Test (Pha) (Accucheck) 1 ea 02 XX ; Start 09/22/16 at 02:00 Miscellaneous Information 1 ea NOTE XX ; Start 09/21/16 at 20:00 Glucose (Glutose) 15 gm Q15M PRN PO DECREASED GLUCOSE; Start 09/21/16 at 20:00 Glucose (Glutose) 22.5 gm Q15M PRN PO DECREASED GLUCOSE; Start 09/21/16 at 20:00 Dextrose (D50w Syringe) 25 ml Q15M PRN IV DECREASED GLUCOSE; Start 09/21/16 at 20:00 Dextrose (D50w Syringe) 50 ml Q15M PRN IV DECREASED GLUCOSE; Start 09/21/16 at 20:00 Glucagon (Glucagen) 1 mg Q15M PRN IM DECREASED GLUCOSE; Start 09/21/16 at 20:00 Glucose (Glutose) 15 gm Q15M PRN BUCCAL DECREASED GLUCOSE; Start 09/21/16 at 20: 00 Cyclobenzaprine HCl (Flexeril) 10 mg TID PO Last administered on 09/23/16 08:47 ; Admin Dose 10 MG; Start 09/22/16 at 13:00 CLYDE LOWE Sep 23, 2016 11:53
[2016-09-23 19:27] VITALS: BP 141/82; RESP 18
[2016-09-23] MEDS: SIMVASTATIN 20 MG TAB PO SCH (21:10)
[2016-09-23 23:59] VITALS: BP 131/70; PULSE 62; RESP 18
[2016-09-24] MEDS: GUAIFENESIN/CODEINE 5ML CUP PO SCH ×6 (01:00→21:05)
[2016-09-24] MEDS: ACCUCHECK XX SCH ×2 (01:21→21:20)
[2016-09-24] MEDS: HYDROCODONE/APAP (5/325) TAB PO PRN ×2 (02:04→18:20)
[2016-09-24 05:24] LABS: BASOPHILS % 0.5 % (0.0-2.0); EOSINOPHILS # 0.2 10^3/ul (0.0-0.5); EOSINOPHILS % 2.6 % (0.0-7.0); HEMATOCRIT 48.2 % (42.0-52.0); HEMOGLOBIN 16.1 g/dl (14.0-18.0); LYMPHOCYTES # 2.2 10^3/ul (0.8-2.9); MEAN CORPUSCULAR HEMOGLOBIN 33.3 pg (29.0-33.0); MEAN CORPUSCULAR HGB CONC 33.4 g/dl (32.0-37.0); MEAN CORPUSCULAR VOLUME 99.8 fl (82.0-101.0); MEAN PLATELET VOLUME 8.1 fl (7.4-10.4); MONOCYTE # 0.6 10^3/ul (0.3-0.9); MONOCYTES % 8.2 % (0.0-11.0); NEUTROPHIL # 4.8 10^3/ul (1.6-7.5); NEUTROPHILS % 60.7 % (39.0-77.0); PLATELET COUNT 234 10^3/UL (140-440); RED BLOOD COUNT 4.83 10^6/ul (4.70-6.10); RED CELL DISTRIBUTION WIDTH 13.5 % (11.5-14.5); UNCORRECTED WBC 7.9 10^3/ul (4.8-10.8); WHITE BLOOD COUNT 7.9 10^3/ul (4.8-10.8)
[2016-09-24 05:30] LABS: CONDITION 1
[2016-09-24 05:44] LABS: POTASSIUM 4.3 mmol/L (3.5-5.1)
[2016-09-24 05:46] LABS: CREATININE 1.07 mg/dl (0.61-1.24)
[2016-09-24 05:47] LABS: CALCIUM 9.2 mg/dl (8.4-10.2)
[2016-09-24] MEDS: PANTOPRAZOLE (EC) 40 MG TAB PO SCH (06:05)
[2016-09-24] MEDS: DOCUSATE SODIUM 100 MG CAP PO SCH ×2 (06:06→18:06)
[2016-09-24] MEDS: INSULIN ASPART [NOVOLOG] 3 ML PEN SC SCH ×4 (07:20→21:00)
[2016-09-24 08:00] VITALS: BP 132/76; RESP 20
[2016-09-24] MEDS: BUPROPION 100 MG TAB PO SCH ×2 (09:06→21:11)
[2016-09-24] MEDS: CYCLOBENZAPRINE 10 MG TAB PO SCH ×3 (09:06→21:11)
[2016-09-24] MEDS: SENNA TAB PO SCH ×2 (09:06→21:10)
[2016-09-24] MEDS: GABAPENTIN 300 MG CAP PO SCH ×2 (09:06→21:11)
[2016-09-24 09:08] VITALS: PULSE 65; RESP 17
--- NOTE | 2016-09-24 11:00 | PN ---
Date/Time of Note Date/Time of Note DATE: 09/24/16 TIME: 10:58 Assessment/Plan VTE Prophylaxis VTE Prophylaxis Intervention: SCD's Lines/Catheters IV Catheter Type (from Nrs): Peripheral IV Urinary Cath still in place: No Assessment/Plan Chief Complaint/Hosp Course ASSESSMENT AND PLAN: 61-year-old male coming in with low back pain for 4 to 5 days with signs of right iliac artery dissection. 1. Low back pain. Unclear source. Could be secondary to the dissection, although it appears relatively small on imaging study. The patient does have a history of what looks like chronic back pain as well. - f/u vascular surgery consult rec's, med/surg floor care - pain control medications with [place] and morphine p.r.n. as well. - Hold all NSAID, given the possible dissection. - The patient was explained the possible medical options including medical management for now versus possible stent placement. Per [facility] surgery team, medical mngt for now. - continue flexeril TID, consider pain mngt consult as well if not improved. 2. Diabetes type 2 - A1c = 6.4 - continue sliding scale insulin. 3. Hypertension. Again, he came in with hypertensive urgency. Blood pressure is presently stable now. - Continue current medications as well. 4. History of gastroesophageal reflux disease - PPI. 5. Gastrointestinal prophylaxis, PPI. 6. Deep venous thrombosis prophylaxis. Again, avoid all anticoagulants - SCDs for now. 7. History of depression - now pt expressing SI. The patient was somewhat tearful at the end of my HPI. He does state a history of depression. His mother recently as well. He does take bupropion as well for depression, -will get PET eval today TROY - pt is medically cleared for any further treatment/transfer to psych facility today - also awaiting tele psych consult - pending Problems: Subjective 24 Hr Interval Summary Free Text/Dictation Some less pain, still awaiting tele psych eval. Pt yesterday expressed SI, and 1 :1 sitter added to room. Exam/Review of Systems Vital Signs Vitals Vital Signs Date Time Temp Pulse Resp B/P Pulse Ox O2 Delivery O2 Flow Rate FiO2 09/24/16 10:41 98 21 09/24/16 10:41 70 20 09/24/16 09:08 Room Air 09/24/16 08:00 97.1 132/76 Intake and Output 09/23/16 09/23/16 09/24/16 15:00 23:00 07:00 Intake Total 1900 ml 1560 ml Output Total 1550 ml 2300 ml Balance 350 ml -740 ml Exam GENERAL: The patient is lying in bed, answering questions appropriately. less distress HEENT: Pupils equal, round, react to light. Extraocular muscles intact. NECK: Supple. No thyromegaly. LUNGS: Clear to auscultation bilaterally. CARDIOVASCULAR: S1, S2 heard. No rubs or gallops. ABDOMEN: Soft, nontender. Slightly distended, slightly firm, but no rebound or guarding. Normal bowel sounds. MUSCULOSKELETAL: No lower extremity edema bilaterally. NEUROLOGIC: No focal deficits. No loss of sensation in upper or lower extremities bilaterally. Results Result Diagram: 09/24/16 0432 09/24/16 0432 Results 24 hrs Laboratory Tests Test 09/23/16 11:47 09/23/16 16:43 09/23/16 21:08 09/24/16 04:32 Bedside Glucose 131 116 132 Anion Gap 15 Basophils # 0.0 Basophils % 0.5 Blood Urea Nitrogen 18 Calcium Level 9.2 Carbon Dioxide Level 27 Chloride Level 104 Creatinine 1.07 Eosinophils # 0.2 Eosinophils % 2.6 Glucose Level 108 Hematocrit 48.2 Hemoglobin 16.1 Lymphocytes # 2.2 Lymphocytes % 28.0 Mean Corpuscular Hemoglobin 33.3 H Mean Corpuscular Hemoglobin Concent 33.4 Mean Corpuscular Volume 99.8 Mean Platelet Volume 8.1 Monocytes # 0.6 Monocytes % 8.2 Neutrophils # 4.8 Neutrophils % 60.7 Nucleated Red Blood Cells # 0.0 Nucleated Red Blood Cells % 0.0 Platelet Count 234 Potassium Level 4.3 Red Blood Count 4.83 Red Cell Distribution Width 13.5 Sodium Level 142 White Blood Count 7.9 Test 09/24/16 07:47 Bedside Glucose 104 Medications Medications Current Medications Ondansetron HCl (Zofran Inj) 4 mg Q6H PRN IV NAUSEA AND/OR VOMITING; Start 09/21 at 17:00 Acetaminophen (Tylenol Tab) 650 mg Q6H PRN PO PAIN LEVEL 1-3 OR FEVER; Start at 17:00 Acetaminophen/ Hydrocodone Bitart ([place] (5/325)) 1 tab Q6H PRN PO MODERATE PAIN LEVEL 4-6 Last administered on 09/24/16 02:04; Admin Dose 1 TAB; Start 09/21 at 17:00 Morphine Sulfate (morphine) 2 mg Q4H PRN IV SEVERE PAIN LEVEL 7-10 Last administered on 09/22/16 08:58; Admin Dose 2 MG; Start 09/21/16 at 17:00 Magnesium Hydroxide (Milk Of Mag) 30 ml DAILY PRN PO CONSTIPATION; Start at 17:00 Sodium Biphosphate/ Sodium Phosphate (Fleet Enema) 133 ml DAILY PRN [place] CONSTIPATION; Start 09/21/16 at 17:00 Pantoprazole 40 mg 40 mg DAILY@06 PO Last administered on 09/24/16 06:05; Admin Dose 40 MG; Start 09/22/16 at 06:00 Sodium Chloride (1/2 NS) 1,000 ml @ 75 mls/hr [id number] IV Last administered on 09/23/16 21:11; Admin Dose 75 MLS/HR; Start 09/21/16 at 16:35 Lorazepam (Ativan) 0.5 mg Q6H PRN IV ANXIETY; Start 09/21/16 at 17:00 Hydralazine HCl (Apresoline) 10 mg Q6H PRN IV ELEVATED BLOOD PRESSURE; Start at 17:00 Clonidine (Catapres) 0.1 mg Q6H PRN PO ELEVATED BLOOD PRESSURE; Start 09/21/16 at 17:00 Nitroglycerin (Nitroglycerin (Sl Tab) 0.4 Mg) 1 tab Q5M PRN SL ANGINA; Start at 17:00 Albuterol (Ventolin Hfa) 2 puff Q4 PRN INH SHORTNESS OF BREATH; Start 09/21/16 at 17:00 Bupropion HCl (Wellbutrin) 100 mg BID PO Last administered on 09/24/16 09:06; Admin Dose 100 MG; Start 09/21/16 at 21:00 Gabapentin (Neurontin) 300 mg BID PO Last administered on 09/24/16 09:06; Admin Dose 300 MG; Start 09/21/16 at 21:00 Guaifenesin/ Codeine Phosphate (Robitussin Ac Liquid Cup) 5 ml Q4H PO Last administered on 09/24/16 09:06; Admin Dose 5 ML; Start 09/21/16 at 17:00 Simvastatin (Zocor) 20 mg HS PO Last administered on 09/23/16 21:10; Admin Dose 20 MG; Start 09/21/16 at 21:00 Docusate Sodium (Colace) 100 mg Q12H PO Last administered on 09/24/16 06:06; Admin Dose 100 MG; Start 09/22/16 at 05:00 Senna (Senokot) 1 tab BID PO Last administered on 09/24/16 09:06; Admin Dose 1 TAB; Start 09/21/16 at 21:00 Diagnostic Test (Pha) (Accucheck) 1 ea 02 XX ; Start 09/22/16 at 02:00 Miscellaneous Information 1 ea NOTE XX ; Start 09/21/16 at 20:00 Glucose (Glutose) 15 gm Q15M PRN PO DECREASED GLUCOSE; Start 09/21/16 at 20:00 Glucose (Glutose) 22.5 gm Q15M PRN PO DECREASED GLUCOSE; Start 09/21/16 at 20:00 Dextrose (D50w Syringe) 25 ml Q15M PRN IV DECREASED GLUCOSE; Start 09/21/16 at 20:00 Dextrose (D50w Syringe) 50 ml Q15M PRN IV DECREASED GLUCOSE; Start 09/21/16 at 20:00 Glucagon (Glucagen) 1 mg Q15M PRN IM DECREASED GLUCOSE; Start 09/21/16 at 20:00 Glucose (Glutose) 15 gm Q15M PRN BUCCAL DECREASED GLUCOSE; Start 09/21/16 at 20: 00 Cyclobenzaprine HCl (Flexeril) 5 mg TID PO Last administered on 09/24/16 09:06 ; Admin Dose 5 MG; Start 09/23/16 at 13:00 CLYDE LOWE Sep 24, 2016 11:00
[2016-09-24] MEDS: SOD CHLORIDE 0.45% 1,000 ML IV SCH (11:59)
[2016-09-24 21:00] VITALS: BP 127/69; PULSE 77; RESP 18
[2016-09-24] MEDS: SIMVASTATIN 20 MG TAB PO SCH (21:11)
[2016-09-25] MEDS: GUAIFENESIN/CODEINE 5ML CUP PO SCH ×4 (00:28→13:00)
[2016-09-25] MEDS: SOD CHLORIDE 0.45% 1,000 ML IV SCH (00:32)
[2016-09-25] MEDS: HYDROCODONE/APAP (5/325) TAB PO PRN ×2 (00:32→15:00)
[2016-09-25] MEDS ORDERED: morphine 4 MG/ML VIAL IV PRN (03:30)
[2016-09-25 05:28] VITALS: BP 128/71; PULSE 77; RESP 18
[2016-09-25 05:50] LABS: CREATININE 1.12 mg/dl (0.61-1.24)
[2016-09-25 05:51] LABS: CALCIUM 8.7 mg/dl (8.4-10.2)
[2016-09-25 05:55] LABS: BASOPHIL # 0.1 10^3/ul (0.0-0.1); BASOPHILS % 0.7 % (0.0-2.0); EOSINOPHILS # 0.3 10^3/ul (0.0-0.5); EOSINOPHILS % 3.5 % (0.0-7.0); HEMATOCRIT 45.3 % (42.0-52.0); HEMOGLOBIN 15.3 g/dl (14.0-18.0); LYMPHOCYTES # 1.8 10^3/ul (0.8-2.9); LYMPHOCYTES % 23.4 % (15.0-51.0); MEAN CORPUSCULAR HEMOGLOBIN 33.6 pg (29.0-33.0); MEAN CORPUSCULAR HGB CONC 33.7 g/dl (32.0-37.0); MEAN CORPUSCULAR VOLUME 99.7 fl (82.0-101.0); MEAN PLATELET VOLUME 8.1 fl (7.4-10.4); MONOCYTE # 0.6 10^3/ul (0.3-0.9); MONOCYTES % 8.1 % (0.0-11.0); NEUTROPHIL # 5.1 10^3/ul (1.6-7.5); NEUTROPHILS % 64.3 % (39.0-77.0); PLATELET COUNT 223 10^3/UL (140-440); RED BLOOD COUNT 4.54 10^6/ul (4.70-6.10); RED CELL DISTRIBUTION WIDTH 13.2 % (11.5-14.5); UNCORRECTED WBC 7.9 10^3/ul (4.8-10.8); WHITE BLOOD COUNT 7.9 10^3/ul (4.8-10.8)
[2016-09-25] MEDS: PANTOPRAZOLE (EC) 40 MG TAB PO SCH (05:56)
[2016-09-25] MEDS: DOCUSATE SODIUM 100 MG CAP PO SCH (05:56)
[2016-09-25 06:00] LABS: CONDITION 1
[2016-09-25 07:14] VITALS: BP 105/55; RESP 16
[2016-09-25] MEDS: INSULIN ASPART [NOVOLOG] 3 ML PEN SC SCH ×2 (07:20→12:42)
[2016-09-25] MEDS: GABAPENTIN 300 MG CAP PO SCH (10:02)
[2016-09-25] MEDS: SENNA TAB PO SCH (10:02)
[2016-09-25] MEDS: BUPROPION 100 MG TAB PO SCH (10:02)
[2016-09-25] MEDS: CYCLOBENZAPRINE 10 MG TAB PO SCH ×2 (10:02→14:48)
--- NOTE | 2016-09-25 11:50 | PN ---
Date/Time of Note Date/Time of Note DATE: 09/25/16 TIME: 11:46 Assessment/Plan VTE Prophylaxis VTE Prophylaxis Intervention: SCD's Lines/Catheters IV Catheter Type (from [facility] Peripheral IV Urinary Cath still in place: No Assessment/Plan Chief Complaint/Hosp Course ASSESSMENT AND PLAN: 61-year-old male coming in with low back pain for 4 to 5 days with signs of right iliac artery dissection. 1. Low back pain. Unclear source. Could be secondary to the dissection, although it appears relatively small on imaging study. The patient does have a history of what looks like chronic back pain as well. - f/u vascular surgery consult rec's, med/surg floor care - pain control medications with [place] and morphine p.r.n. as well. - Hold all NSAID, given the possible dissection. - The patient was explained the possible medical options including medical management for now versus possible stent placement. Per [facility] surgery team, medical mngt for now. - continue flexeril TID, consider pain mngt consult as well if not improved. 2. Diabetes type 2 - A1c = 6.4 - continue sliding scale insulin. 3. Hypertension. Again, he came in with hypertensive urgency. Blood pressure is presently stable now. - Continue current medications as well. 4. History of gastroesophageal reflux disease - PPI. 5. Gastrointestinal prophylaxis, PPI. 6. Deep venous thrombosis prophylaxis. Again, avoid all anticoagulants - SCDs for now. 7. History of depression - now pt expressing SI. The patient was somewhat tearful at the end of my HPI. He does state a history of depression. His mother recently as well. He does take bupropion as well for depression, -again, awaiting t PET eval today and/or tele psych (this was ordered 4 days ago) - pt is medically cleared for any further treatment/transfer to psych facility today Problems: Subjective 24 Hr Interval Summary Free Text/Dictation Still waiting for tele psych and PET eval. Exam/Review of Systems Vital Signs Vitals Vital Signs Date Time Temp Pulse Resp B/P Pulse Ox O2 Delivery O2 Flow Rate FiO2 09/25/16 07:14 98.0 70 16 105/55 93 09/25/16 05:28 Room Air 09/24/16 17:18 21 Intake and Output 09/24/16 09/24/16 09/25/16 14:59 22:59 06:59 Intake Total 590 ml 1950 ml Output Total 500 ml 900 ml Balance 90 ml 1050 ml Exam GENERAL: The patient is lying in bed, answering questions appropriately. less distress HEENT: Pupils equal, round, react to light. Extraocular muscles intact. NECK: Supple. No thyromegaly. LUNGS: Clear to auscultation bilaterally. CARDIOVASCULAR: S1, S2 heard. No rubs or gallops. ABDOMEN: Soft, nontender. Slightly distended, slightly firm, but no rebound or guarding. Normal bowel sounds. MUSCULOSKELETAL: No lower extremity edema bilaterally. NEUROLOGIC: No focal deficits. No loss of sensation in upper or lower extremities bilaterally. Results Result Diagram: 09/25/16 0434 09/25/16 0434 Results 24 hrs Laboratory Tests Test 09/24/16 16:55 09/24/16 20:06 09/25/16 04:34 09/25/16 08:15 Bedside Glucose 195 142 103 Anion Gap 14 Basophils # 0.1 Basophils % 0.7 Blood Urea Nitrogen 20 Calcium Level 8.7 Carbon Dioxide Level 29 Chloride Level 104 Creatinine 1.12 Eosinophils # 0.3 Eosinophils % 3.5 Glucose Level 98 Hematocrit 45.3 Hemoglobin 15.3 Lymphocytes # 1.8 Lymphocytes % 23.4 Mean Corpuscular Hemoglobin 33.6 H Mean Corpuscular Hemoglobin Concent 33.7 Mean Corpuscular Volume 99.7 Mean Platelet Volume 8.1 Monocytes # 0.6 Monocytes % 8.1 Neutrophils # 5.1 Neutrophils % 64.3 Nucleated Red Blood Cells # 0.0 Nucleated Red Blood Cells % 0.0 Platelet Count 223 Potassium Level 4.0 Red Blood Count 4.54 L Red Cell Distribution Width 13.2 Sodium Level 143 White Blood Count 7.9 Medications Medications Current Medications Ondansetron HCl (Zofran Inj) 4 mg Q6H PRN IV NAUSEA AND/OR VOMITING; Start 09/21 at 17:00 Acetaminophen (Tylenol Tab) 650 mg Q6H PRN PO PAIN LEVEL 1-3 OR FEVER; Start at 17:00 Acetaminophen/ Hydrocodone Bitart ([place] (5/325)) 1 tab Q6H PRN PO MODERATE PAIN LEVEL 4-6 Last administered on 09/25/16t 00:32; Admin Dose 1 TAB; Start 09/21 at 17:00 Magnesium Hydroxide (Milk Of Mag) 30 ml DAILY PRN PO CONSTIPATION Last administered on 09/24/16 18:06; Admin Dose 30 ML; Start 09/21/16 at 17:00 Sodium Biphosphate/ Sodium Phosphate (Fleet Enema) 133 ml DAILY PRN ND CONSTIPATION Last administered on 09/24/16 21:14; Admin Dose 133 ML; Start at 17:00 Pantoprazole 40 mg 40 mg DAILY@06 PO Last administered on 09/25/16 05:56; Admin Dose 40 MG; Start 09/22/16 at 06:00 Sodium Chloride (1/2 NS) 1,000 ml @ 75 mls/hr [id number] IV Last administered on 09/25/16 00:32; Admin Dose 75 MLS/HR; Start 09/21/16 at 16:35 Lorazepam (Ativan) 0.5 mg Q6H PRN IV ANXIETY; Start 09/21/16 at 17:00 Hydralazine HCl (Apresoline) 10 mg Q6H PRN IV ELEVATED BLOOD PRESSURE; Start at 17:00 Clonidine (Catapres) 0.1 mg Q6H PRN PO ELEVATED BLOOD PRESSURE; Start 09/21/16 at 17:00 Nitroglycerin (Nitroglycerin (Sl Tab) 0.4 Mg) 1 tab Q5M PRN SL ANGINA; Start at 17:00 Albuterol (Ventolin Hfa) 2 puff Q4 PRN INH SHORTNESS OF BREATH; Start 09/21/16 at 17:00 Bupropion HCl (Wellbutrin) 100 mg BID PO Last administered on 09/25/16 10:02; Admin Dose 100 MG; Start 09/21/16 at 21:00 Gabapentin (Neurontin) 300 mg BID PO Last administered on 09/25/16 10:02; Admin Dose 300 MG; Start 09/21/16 at 21:00 Guaifenesin/ Codeine Phosphate (Robitussin Ac Liquid Cup) 5 ml Q4H PO Last administered on 09/25/16 05:56; Admin Dose 5 ML; Start 09/21/16 at 17:00 Simvastatin (Zocor) 20 mg HS PO Last administered on 09/24/16 21:11; Admin Dose 20 MG; Start 09/21/16 at 21:00 Docusate Sodium (Colace) 100 mg Q12H PO Last administered on 09/25/16 05:56; Admin Dose 100 MG; Start 09/22/16 at 05:00 Senna (Senokot) 1 tab BID PO Last administered on 09/25/16 10:02; Admin Dose 1 TAB; Start 09/21/16 at 21:00 Diagnostic Test (Pha) (Accucheck) 1 ea 02 XX ; Start 09/22/16 at 02:00 Miscellaneous Information 1 ea NOTE XX ; Start 09/21/16 at 20:00 Glucose (Glutose) 15 gm Q15M PRN PO DECREASED GLUCOSE; Start 09/21/16 at 20:00 Glucose (Glutose) 22.5 gm Q15M PRN PO DECREASED GLUCOSE; Start 09/21/16 at 20:00 Dextrose (D50w Syringe) 25 ml Q15M PRN IV DECREASED GLUCOSE; Start 09/21/16 at 20:00 Dextrose (D50w Syringe) 50 ml Q15M PRN IV DECREASED GLUCOSE; Start 09/21/16 at 20:00 Glucagon (Glucagen) 1 mg Q15M PRN IM DECREASED GLUCOSE; Start 09/21/16 at 20:00 Glucose (Glutose) 15 gm Q15M PRN BUCCAL DECREASED GLUCOSE; Start 09/21/16 at 20: 00 Cyclobenzaprine HCl (Flexeril) 5 mg TID PO Last administered on 09/25/16 10:02 ; Admin Dose 5 MG; Start 09/23/16 at 13:00 CLYDE LOWE Sep 25, 2016 11:50
--- NOTE | 2016-09-25 12:37 | PSY ---
Date/Time of Note Date/Time of Note DATE: 09/25/16 TIME: 12:32 Psychiatric Subjective Eval Consent Pt consented to telemedicine: Yes Subjective Evaluation Patient location: inpatient Chief Complaint: LOW BACK PAIN FOR 5 DAYS AND MILD ABD PAIN . NO N/V. HIGH BP Reason for consult: Pt expressed si on admission, spoke with Davis HIGGINS History of present illness 61 yo male with hx schizophrenia admitted due to iliac dissection, on admission epxressed SI:"I will go to [employer] and the police will shoot me". Adamantly denies it now: "I did not mean it like that, I was lonely at home, no food in the fridge, hunglry, sad..I am much better now". Pt denies depression, anixety , feeling hopeless or helpelss, denies AH or Vh, denies si or Hi. Past psychiatric history last inpt was 4 years ago, last SA 20 years ago ptis on Abilify 15 mg and wellbutrin 100 mg bid Hospitalization: Suicidal Attempt(s) Family History denies Medical history Problems Medical Problems: (1) Iliac artery dissection Status: Acute (2) Insect bite Status: Acute (3) Viral bronchitis Status: Acute Allergies: Coded Allergies: No Known Allergy (Unverified , 05/12/13) Substance Abuse Substance abuse history: Yes (thc) Prior substance abuse treatmen: No Social History Marital status: single Level of education: hs DPA/Conservatorship: No Occupation/Snf: on ssi Psychiatric Objective Eval Physical Examination: Sleep: Adequate Appetite: Adequate Energy: Adequate Interest: Adequate Mental Status Examination: Appearance: Groomed Eye Contact: Good Psychomotor Activity: Normal Behavior: Cooperative Speech: Clear AFFECT: Appropriate Mood: Appropriate/Full Though Process: Linear Thought Content: Normal Suicidal: No Homicidal: No On 72 hour hold: No Orientation: x4 Cognition: Alert Insight: Intact Judgement: Intact Laboratory Results Laboratory Tests Test 09/23/16 16:43 09/23/16 21:08 09/24/16 04:32 09/24/16 07:47 Bedside Glucose 116mg/dL 132mg/dL 104mg/dL Anion Gap 15 Basophils # 0.010^3/ul Basophils % 0.5% Blood Urea Nitrogen 18mg/dl Calcium Level 9.2mg/dl Carbon Dioxide Level 27mmol/L Chloride Level 104mmol/L Creatinine 1.07mg/dl Eosinophils # 0.210^3/ul Eosinophils % 2.6% Glucose Level 108mg/dl Hematocrit 48.2% Hemoglobin 16.1g/dl Lymphocytes # 2.210^3/ul Lymphocytes % 28.0% Mean Corpuscular Hemoglobin 33.3pg Mean Corpuscular Hemoglobin Concent 33.4g/dl Mean Corpuscular Volume 99.8fl Mean Platelet Volume 8.1fl Monocytes # 0.610^3/ul Monocytes % 8.2% Neutrophils # 4.810^3/ul Neutrophils % 60.7% Nucleated Red Blood Cells # 0.010^3/ul Nucleated Red Blood Cells % 0.0/100WBC Platelet Count 91974^3/UL Potassium Level 4.3mmol/L Red Blood Count 4.8310^6/ul Red Cell Distribution Width 13.5% Sodium Level 142mmol/L White Blood Count 7.910^3/ul Test 09/24/16 11:39 09/24/16 16:55 09/24/16 20:06 09/25/16 04:34 Bedside Glucose 129mg/dL 195mg/dL 142mg/dL Anion Gap 14 Basophils # 0.110^3/ul Basophils % 0.7% Blood Urea Nitrogen 20mg/dl Calcium Level 8.7mg/dl Carbon Dioxide Level 29mmol/L Chloride Level 104mmol/L Creatinine 1.12mg/dl Eosinophils # 0.310^3/ul Eosinophils % 3.5% Glucose Level 98mg/dl Hematocrit 45.3% Hemoglobin 15.3g/dl Lymphocytes # 1.810^3/ul Lymphocytes % 23.4% Mean Corpuscular Hemoglobin 33.6pg Mean Corpuscular Hemoglobin Concent 33.7g/dl Mean Corpuscular Volume 99.7fl Mean Platelet Volume 8.1fl Monocytes # 0.610^3/ul Monocytes % 8.1% Neutrophils # 5.110^3/ul Neutrophils % 64.3% Nucleated Red Blood Cells # 0.010^3/ul Nucleated Red Blood Cells % 0.0/100WBC Platelet Count 14501^3/UL Potassium Level 4.0mmol/L Red Blood Count 4.5410^6/ul Red Cell Distribution Width 13.2% Sodium Level 143mmol/L White Blood Count 7.910^3/ul Test 09/25/16 08:15 09/25/16 12:13 Bedside Glucose 103mg/dL 229mg/dL Assessment and Plan Assessment/Diagnosis [place] I: SCHIZOAFFECTIVE D/O [place] II: DEFERED [place] III: PER RECORD [place] IV: MODERATE [place] V: GAF 50 Recommendation/Plan Medication Management CONTINUE WELLBUTRIN; PLEASE RESUME ABILIFY 15 MG POQD Psychotherapy DEFER TO OUTPT Pt. Caregiver/Family Education N/A Follow-up/Disposition NO DTS, DTO.GD PT CAN BE TREATED OUTPT; PLEASE REFR TO OUTPT MENTAL HEALTH. 5150 Recommendation: YADIEL Mcneil MD Sep 25, 2016 12:37
--- NOTE | 2016-09-25 14:11 | PDOCDIS ---
Discharge Instructions CONDITION Patient Condition: Stable HOME CARE INSTRUCTIONS: Special Diet: SOFT ACTIVITY: Activity Restrictions: Slowly Increase Activity FOLLOW UP/APPOINTMENTS Appointments Please take your medications as prescribed, and see your doctor in the clinic in 1 week. CLYDE LOWE Sep 25, 2016 14:11
[2016-09-25] MEDS ORDERED: BUPR100T14 PO (14:12)
[2016-09-25] MEDS ORDERED: ARIP5TAB7 PO (14:12)
[2016-09-25] MEDS ORDERED: CYCL-319 PO (14:14)
[2016-09-25] MEDS ORDERED: ARIPIPRAZOLE 5 MG TAB PO SCH (14:30)
--- NOTE | 2016-09-25 15:07 | DS ---
DATE OF ADMISSION: 09/21/2016 DATE OF DISCHARGE: 09/25/2016 This is a 61-year-old male originally admitted on 09/21/2016 being discharged home on 09/25/2016. HOSPITAL COURSE: The patient came in with low back pain. He was admitted to med/surg floor. He martines d a CT abdominal angiogram performed that did show right focal small iliac artery dissection. He wa s evaluated by the vascular surgery team who recommended medical management for now. There were no indications for any stent or other surgical procedures to be performed. The patient also had some a djustments to obtain pain medications as well. He also showed some questionable signs of depression and possible suicide ideation on admission and was continued on his antidepressants. Eventually af ter some delay, he was seen by the psychiatry team as well for that. Afterwards, they determined th at in fact, the patient was not having any suicide or homicide ideations actively. Patient was franky mmended to go back on Abilify and continue Wellbutrin for that. Over the course of his hospital sta y, again, his low back pain symptoms improved. His vital signs remained stable. He had no signs of any further deterioration of his small right iliac artery dissection. His vital signs were monitor ed very carefully. He was able to ambulate and tolerate a p.o. diet. He was started on a muscle re laxant as well and because the patient has been cleared both by vascular surgery team and psychiatry team to be discharged home today in improved condition. DISCHARGE MEDICATIONS: He will be sent with the following medications: 1. Abilify 15 mg p.o. daily. 2. Cyclobenzaprine 5 mg p.o. t.i.d. 3. Albuterol HFA 2 puffs inhaled q.4h. p.r.n. 4. Bupropion HCL 100 mg b.i.d. 5. Gabapentin 300 mg b.i.d. 6. Guaifenesin 5 mL p.o. q.4h. p.r.n. 7. Ibuprofen 600 mg p.o. q. p.r.n. 8. Protonix 20 mg daily. 9. Simvastatin 20 mg daily. He will need to follow up with vascular surgery team in the next 1 to 2 weeks. He may need repeat i maging studies in the next few months to further evaluate his iliac artery dissection. He will need to follow up with his regular psychiatrist as outpatient in next 1 to 2 weeks. FINAL DIAGNOSES: 1. Low back pain, unclear source, could be secondary to a combination of depression in the right il iac artery dissection, although this is medically stable, now improved with pain medicines and muscl e relaxants. 2. Type 2 diabetes. A1c of 6.4. Continue medical conservative management. 3. Hypertension, controlled. 4. Right iliac artery dissection. Small in appearance per vascular surgery team. Continue medical management for now. 5. History of depression with possible suicide ideation in the past, now presently stable on antide pressants. Time spent discharging the patient 45 minutes. Dictated By: CLYDE RIOS Conf#: [id number] DID#: [id number]
== END 2016-09-25 16:25 | disposition home or self-care (01) | DRG 551 ==
LOC: E/R 10:35 → MS1 15:18
PROVIDERS: ADMIT Hospitalist; ATTEND Hospitalist
DX: M54.5 Low back pain (principal); I77.72 Dissection of iliac artery; E11.8 Type 2 diabetes mellitus with unspecified complications; I71.4 Abdominal aortic aneurysm, without rupture; I16.0 Hypertensive urgency; Z72.0 Tobacco use; F32.9 Major depressive disorder, single episode, unspecified; K21.9 Gastro-esophageal reflux disease without esophagitis
CPT/HCPCS: 36415; 71010; 75635; 80048; 80053; 80061; 82550; 82553; 82962; 83036; 83690; 83735; 84100; 84439; 84443; 84484; 85025; 85610; 85730; 90686; 93306; 96374; 96375; 96376; 97116; 97163; 97167; 97530; 97535; J1170; J1815; J2270; J2405; J7030; Q9967

== ENCOUNTER 2017-02-08 15:06 | Emergency (ER) | payer OTHER ==
[~2017-02-08] VITALS: Wt 105.0 kg
[~2017-02-08 15:06] MED LIST changes: +ARIP5TAB7 PO; +BUPR100T14 PO; +CYCL-319 PO; +GABA300C16 PO; +PANT20TA3 PO; +SIMV20TA2 PO; -ZOC20 PO
[2017-02-08] MEDS ORDERED: SULF1TAB31 PO (15:59)
[2017-02-08] MEDS ORDERED: IBUP-1542 PO (15:59)
[2017-02-08] MEDS ORDERED: CLOT30CR24 TOP (15:59)
[2017-02-08] MEDS ORDERED: TRIMETHOPRIM/SULFAMETHOX (DS) TAB PO ONE (16:00)
[2017-02-08] MEDS ORDERED: ACETAMINOPHEN 325 MG TAB PO ONE (16:00)
[2017-02-08] MEDS ORDERED: FLUCONAZOLE 150 MG TAB PO ONE (16:00)
[2017-02-08] MEDS ORDERED: CEFTRIAXONE 1 GM INJ IM ONE (16:00)
[2017-02-08] MEDS ORDERED: LIDOCAINE 1% (MDV) 20 ML INJ SC ONE (16:00)
--- NOTE | 2017-02-08 16:01 | ERD ---
ER Documentation Chief Complaint Date/Time DATE: 02/08/17 TIME: 15:59 Chief Complaint RASH AROUND PENIS 8-9 DAYS HPI This 61-year-old male presents with 10 day history of some pain and redness on his penile foreskin. Patient believes the pain may have started after receiving oral sex for some of the braces on and sustaining a small abrasion. He denies dysuria, fevers, vomiting, or history of diabetes. ROS All systems reviewed and are negative except as per history of present illness. Medications Home Meds Active Scripts Sulfamethoxazole/Trimethoprim* (Bactrim Ds* Tablet) 1 Each Tablet, 1 TAB PO BID , #14 TAB Prov:NICOLE MCKEON MD 02/08/17 Ibuprofen* (Motrin*) 600 Mg Tab, 600 MG PO Q6, #20 TAB Prov:NICOLE MCKEON MD 02/08/17 Clotrimazole* (Clotrimazole* AF) 1% - 30 Gm Cream.gm., 1 APPLIC TOP BID for 10 Days, TUB Prov:NICOLE MCKEON MD 02/08/17 Cyclobenzaprine Hcl* (Cyclobenzaprine Hcl*) 10 Mg Tablet, 5 MG PO TID, #90 TAB Prov:MYNORCLYDE S. 09/25/16 Aripiprazole* (Abilify*) 5 Mg Tab, 15 MG PO DAILY, #30 TAB 3 Refills Prov:RAALLYSONCLYDE S. 09/25/16 Bupropion Hcl* (Bupropion Hcl*) 100 Mg Tablet, 100 MG PO BID, #60 TAB 3 Refills Prov:GARRET LOWECLYDE S. 09/25/16 Ibuprofen* (Motrin*) 600 Mg Tab, 600 MG PO Q6H Y for PAIN AND OR ELEVATED TEMP, #30 Prov:KATHY OROZCO NP 03/08/15 Guaifenesin-Codeine Phosphate* (Guaifenesin* with Codeine Liq) 120 Ml Liquid, 5 ML PO Q4H for COUGH, #4 OZ Prov:KATHY OROZCO NP 03/08/15 Albuterol Sulfate* (Albuterol Sulfate* HFA) 8.5 Gm Hfa.aer.ad, 2 PUFF INH Q4 Y for SHORTNESS OF BREATH, #1 EA Prov:KATHY OROZCO [employer]ORER [employer]AGE 03/08/15 Reported Medications Pantoprazole* (Pantoprazole*) 20 Mg Tablet.dr, 20 MG PO AC BREAKFAST, TAB 09/21/16 Gabapentin* (Gabapentin*) 300 Mg Capsule, 300 MG PO BID, #60 CAP 09/21/16 Simvastatin (Simvastatin) 20 Mg Tablet, 20 MG PO DAILY 05/12/13 Allergies Allergies: Coded Allergies: No Known Allergy (Unverified , 05/12/13) PMhx/Soc History of Surgery: Yes (cholecysectomy; rt ankle surgery;) Anesthesia Reaction: No Hx Neurological Disorder: No Hx Respiratory Disorders: No Hx Cardiac Disorders: Yes (HTN) Hx Psychiatric Problems: Yes (Anxiety and Depression) Hx Miscellaneous Medical Probl: Yes (DM2, HTN, GERD, depression.) Hx Alcohol Use: Yes Hx Substance Use: Yes Hx Tobacco Use: Yes Physical Exam Vitals Vital Signs Date Time Temp Pulse Resp B/P Pulse Ox O2 Delivery O2 Flow Rate FiO2 02/08/17 15:10 98.1 89 18 127/88 99 Physical Exam Const: [] Alert, [id number] per Head: Atraumatic Eyes: Normal Conjunctiva ENT: Normal External Ears, Nose and Mouth. Neck: Full range of motion..~ No meningismus. Resp: Clear to auscultation bilaterally Cardio: Regular rate and rhythm, no murmurs Abd: Soft, non tender, non distended. Normal bowel sounds Skin: No petechiae or rashes. Patient is a genital exam shows uncircumcised penis with some irritation and moisture with a healing abrasion or small ulcer. There is no significant induration or fluctuance. There is no penile discharge. Testicles are nontender normal size bilaterally. Back: No midline or flank tenderness Ext: No cyanosis, or edema Neur: Awake and alert Psych: Normal Mood and Affect Results 24 hrs Current Medications Medications (Trade) Dose Ordered Sig/Shola Route PRN Reason Start Time Stop Time Status Last Admin Dose Admin Ceftriaxone Sodium (Rocephin) 1 gm ONCE ONCE IM 02/08/17 16:00 02/08/17 16:01 Lidocaine (Xylocaine 1% (Mdv) 20 ml) 20 ml ONCE ONCE SC 02/08/17 16:00 02/08/17 16:01 Fluconazole (Diflucan) 150 mg ONCE ONCE PO 02/08/17 16:00 02/08/17 16:01 Acetaminophen (Tylenol Tab) 650 mg ONCE ONCE PO 02/08/17 16:00 02/08/17 16:01 Trimethoprim/ Sulfamethoxazole (Bactrim (Ds)) 1 tab ONCE ONCE PO 02/08/17 16:00 02/08/17 16:01 Procedures/MDM Patient presents with a irritated abrasion on the shaft of his penis with what appears to be likely secondary infection or balanitis. We treated with Rocephin 1 g here by request and Bactrim double strength as well as Diflucan. At home and will be treated with Lotrimin and Bactrim ibuprofen for pain. Patient is advised to follow-up with urology for persistent symptoms. Patient should return for fevers, redness, new worsening symptoms. Patient advised he may need authorization from primary doctor for urology visit. Signs and symptoms do not suggest Erica's gangrene, sepsis, significant cellulitis or abscess. There is no evidence of ischemia. Departure Diagnosis: Primary Impression: Balanitis Additional Impression: Rash Condition: Stable Patient Instructions: Cellulitis, Balanitis Additional Instructions: Rash appears to be infected abrasion or possible fungal infection. We will treat for both. Recheck for new or worsening symptoms with primary care doctor. See urology for persistent symptoms. May need authorization from primary doctor care doctor for urology visit. NICOLE MCKEON MD February 08, 2017 16:01
== END 2017-02-08 16:25 | disposition home or self-care (01) ==
LOC: FTE 15:06
DX: N48.1 Balanitis (principal); R21 Rash and other nonspecific skin eruption; I10 Essential (primary) hypertension; E11.9 Type 2 diabetes mellitus without complications; Z87.891 Personal history of nicotine dependence
CPT/HCPCS: 96372; J0696; Z7502; Z7610

== ENCOUNTER 2017-07-25 20:18 | Emergency (ER) | payer OTHER ==
[~2017-07-25] VITALS: Ht 175.3 cm; Wt 89.4 kg
[~2017-07-25 20:18] MED LIST changes: +CLOT30CR24 TOP; +SULF1TAB31 PO
[2017-07-25 20:31] VITALS: Ht 175.3 cm; Wt 89.4 kg
[2017-07-25] MEDS ORDERED: SULF1TAB31 PO (21:38)
[2017-07-25] MEDS ORDERED: IBUP800T25 PO (21:38)
[2017-07-25] MEDS ORDERED: HYDR-906 PO (21:38)
[2017-07-25] MEDS ORDERED: MUPI22OI2 TOP (21:38)
[2017-07-25] MEDS ORDERED: PANT20TA3 PO (21:38)
[2017-07-25] MEDS ORDERED: CEPH-443 PO (21:38)
--- NOTE | 2017-07-25 21:46 | ERD ---
ER Documentation Chief Complaint Chief Complaint abscess testicular area x 1 week, also needs medication refill for gerd HPI This is a 62-year-old otherwise healthy male who presents with an area of redness and swelling under his left testicle that he has had for 2 weeks. He stated that it has had some purulent drainage from it. He has no dysuria hematuria frequency. No fever. No trauma. He has not taken any medication for this. ROS All systems reviewed and are negative except as per history of present illness. Medications Home Meds Active Scripts Pantoprazole* (Pantoprazole*) 20 Mg Tablet.dr, 20 MG PO DAILY, #30 TAB Prov:MARTHA JULIAN PA-C 07/25/17 Hydrocodone/Acetaminophen ([place] 5-325 Tablet) 1 Each Tablet, 1 TAB PO Q6H Y for PAIN, #15 TAB Prov:MARTHA JULIAN PA-C 07/25/17 Cephalexin* (Keflex*) 500 Mg Capsule, 500 MG PO QID for 7 Days, CAP Prov:MARTHA JULIAN PA-C 07/25/17 Ibuprofen* (Motrin*) 800 Mg Tab, 800 MG PO Q6, #30 TAB Prov:MARTHA JULIAN PA-C 07/25/17 Mupirocin* (Bactroban*) 2% -22 Gram Oint...g., 1 APPLIC TOP BID for 7 Days, EA Prov:MARTHA JULIAN PA-C 07/25/17 Sulfamethoxazole/Trimethoprim* (Bactrim Ds* Tablet) 1 Each Tablet, 1 TAB PO BID , #14 TAB Prov:MARTHA JULIAN PA-C 07/25/17 Sulfamethoxazole/Trimethoprim* (Bactrim Ds* Tablet) 1 Each Tablet, 1 TAB PO BID , #14 TAB Prov:NICOLE MCKEON MD 02/08/17 Ibuprofen* (Motrin*) 600 Mg Tab, 600 MG PO Q6, #20 TAB Prov:NICOLE MCKEON MD 02/08/17 Clotrimazole* (Clotrimazole* AF) 1% - 30 Gm Cream.gm., 1 APPLIC TOP BID for 10 Days, TUB Prov:NICOLE MCKEON MD 02/08/17 Cyclobenzaprine Hcl* (Cyclobenzaprine Hcl*) 10 Mg Tablet, 5 MG PO TID, #90 TAB Prov:KIMBERLY LOWEEEP S. 09/25/16 Aripiprazole* (Abilify*) 5 Mg Tab, 15 MG PO DAILY, #30 TAB 3 Refills Prov:MYNORCLYDE S. 09/25/16 Bupropion Hcl* (Bupropion Hcl*) 100 Mg Tablet, 100 MG PO BID, #60 TAB 3 Refills Prov:GARRET LOWECLYDE S. 09/25/16 Ibuprofen* (Motrin*) 600 Mg Tab, 600 MG PO Q6H Y for PAIN AND OR ELEVATED TEMP, #30 Prov:KATHY OROZCO. MEDICAL DOCTOR NUCLEAR MEDICINE 03/08/15 Guaifenesin-Codeine Phosphate* (Guaifenesin* with Codeine Liq) 120 Ml Liquid, 5 ML PO Q4H for COUGH, #4 OZ Prov:KATHY OROZCO. MEDICAL DOCTOR NUCLEAR MEDICINE 03/08/15 Albuterol Sulfate* (Albuterol Sulfate* HFA) 8.5 Gm Hfa.aer.ad, 2 PUFF INH Q4 Y for SHORTNESS OF BREATH, #1 EA Prov:KATHY OROZCO. MEDICAL DOCTOR NUCLEAR MEDICINE 03/08/15 Reported Medications Pantoprazole* (Pantoprazole*) 20 Mg Tablet.dr, 20 MG PO AC BREAKFAST, TAB 09/21/16 Gabapentin* (Gabapentin*) 300 Mg Capsule, 300 MG PO BID, #60 CAP 09/21/16 Simvastatin (Simvastatin) 20 Mg Tablet, 20 MG PO DAILY 05/12/13 Allergies Allergies: Coded Allergies: No Known Allergy (Unverified , 05/12/13) PMhx/Soc History of Surgery: Yes (cholecysectomy; rt ankle surgery;) Anesthesia Reaction: No Hx Neurological Disorder: No Hx Respiratory Disorders: No Hx Cardiac Disorders: Yes (HTN) Hx Psychiatric Problems: Yes (Anxiety and Depression) Hx Miscellaneous Medical Probl: Yes (DM2, HTN, GERD, depression.) Hx Alcohol Use: Yes Hx Substance Use: Yes Hx Tobacco Use: Yes FmHx Family History: No diabetes Physical Exam Vitals Vital Signs Date Time Temp Pulse Resp B/P Pulse Ox O2 Delivery O2 Flow Rate FiO2 07/25/17 20:31 98.0 86 20 136/61 98 Physical Exam INITIAL VITAL SIGNS: Reviewed by me GENERAL: Awake, alert and oriented x 4, well appearing, nontoxic, speaking in full sentences. No acute distress RESPIRATORY: Clear to auscultation bilaterally. Symmetric chest wall rise. No wheezing or rales. No accessory muscle use. CV: Regular rate and rhythm. No murmurs, rubs, or gallops. ABDOMEN: Soft, non-distended. Nontender. Negative [place]. Negative [place] point tenderness. No CVA tenderness bilaterally. No guarding. No rebound. : Under the left testicle there is an area of erythema and induration with scant drainage, no fluctuance, tender to palpation, approximately 2 cm in diameter Procedures/MDM 62-year-old male presents with area of cellulitis in his left testicle. He is not diabetic and he is otherwise healthy. This is been going on for 2 weeks. It is already open and draining so I do not believe further incision and drainage is warranted at this time. Patient was discharged with bacitracin, Keflex, Bactrim. Recommended 2 day wound check or sooner for worsening of symptoms. He was also given ibuprofen and small amount [place] for pain. He was also given a refill of pantoprazole that he uses for GERD per his request. Patient counseled regarding my diagnostic impression and care plan. Prior to discharge all questions answered. Pt agrees with treatment plan and understands strict return precautions. Pt is instructed to follow up with primary care provider within 24-48 hours. Precautionary instructions provided including instructions to return to the ER if not improving or for any worsening or changing symptoms or concerns. Departure Diagnosis: Primary Impression: Abscess Condition: Stable Patient Instructions: Abscess, Antiobiotic Treatment Only Additional Instructions: Call your primary care doctor TOMORROW for an appointment during the next 1-2 days.See the doctor sooner or return here if your condition worsens before your appointment time. Return in 48 hours for wound check or sooner for new or worsening sx. MARTHA JULIAN PA-C Jul 25, 2017 21:46
--- NOTE | 2017-07-25 21:46 | ERD ---
ER Documentation Chief Complaint Chief Complaint abscess testicular area x 1 week, also needs medication refill for gerd HPI This is a 62-year-old otherwise healthy male who presents with an area of redness and swelling under his left testicle that he has had for 2 weeks. He stated that it has had some purulent drainage from it. He has no dysuria hematuria frequency. No fever. No trauma. He has not taken any medication for this. ROS All systems reviewed and are negative except as per history of present illness. Medications Home Meds Active Scripts Pantoprazole* (Pantoprazole*) 20 Mg Tablet.dr, 20 MG PO DAILY, #30 TAB Prov:MARTHA JULIAN PA-C 07/25/17 Hydrocodone/Acetaminophen ([place] 5-325 Tablet) 1 Each Tablet, 1 TAB PO Q6H Y for PAIN, #15 TAB Prov:MARTHA JULIAN PA-C 07/25/17 Cephalexin* (Keflex*) 500 Mg Capsule, 500 MG PO QID for 7 Days, CAP Prov:MARTHA JULIAN PA-C 07/25/17 Ibuprofen* (Motrin*) 800 Mg Tab, 800 MG PO Q6, #30 TAB Prov:MARTHA JULIAN PA-C 07/25/17 Mupirocin* (Bactroban*) 2% -22 Gram Oint...g., 1 APPLIC TOP BID for 7 Days, EA Prov:MARTHA JULIAN PA-C 07/25/17 Sulfamethoxazole/Trimethoprim* (Bactrim Ds* Tablet) 1 Each Tablet, 1 TAB PO BID , #14 TAB Prov:MARTHA JULIAN PA-C 07/25/17 Sulfamethoxazole/Trimethoprim* (Bactrim Ds* Tablet) 1 Each Tablet, 1 TAB PO BID , #14 TAB Prov:NICOLE MCKEON MD 02/08/17 Ibuprofen* (Motrin*) 600 Mg Tab, 600 MG PO Q6, #20 TAB Prov:NICOLE MCKEON MD 02/08/17 Clotrimazole* (Clotrimazole* AF) 1% - 30 Gm Cream.gm., 1 APPLIC TOP BID for 10 Days, TUB Prov:NICOLE MCKEON MD 02/08/17 Cyclobenzaprine Hcl* (Cyclobenzaprine Hcl*) 10 Mg Tablet, 5 MG PO TID, #90 TAB Prov:KIMBERLY LOWEEEP S. 09/25/16 Aripiprazole* (Abilify*) 5 Mg Tab, 15 MG PO DAILY, #30 TAB 3 Refills Prov:MYNORCLYDE S. 09/25/16 Bupropion Hcl* (Bupropion Hcl*) 100 Mg Tablet, 100 MG PO BID, #60 TAB 3 Refills Prov:GARRET LOWECLYDE S. 09/25/16 Ibuprofen* (Motrin*) 600 Mg Tab, 600 MG PO Q6H Y for PAIN AND OR ELEVATED TEMP, #30 Prov:KATHY OROZCO. STAFFING ACCOUNT MANAGER 03/08/15 Guaifenesin-Codeine Phosphate* (Guaifenesin* with Codeine Liq) 120 Ml Liquid, 5 ML PO Q4H for COUGH, #4 OZ Prov:KATHY OROZCO. STAFFING ACCOUNT MANAGER 03/08/15 Albuterol Sulfate* (Albuterol Sulfate* HFA) 8.5 Gm Hfa.aer.ad, 2 PUFF INH Q4 Y for SHORTNESS OF BREATH, #1 EA Prov:KATHY OROZCO. STAFFING ACCOUNT MANAGER 03/08/15 Reported Medications Pantoprazole* (Pantoprazole*) 20 Mg Tablet.dr, 20 MG PO AC BREAKFAST, TAB 09/21/16 Gabapentin* (Gabapentin*) 300 Mg Capsule, 300 MG PO BID, #60 CAP 09/21/16 Simvastatin (Simvastatin) 20 Mg Tablet, 20 MG PO DAILY 05/12/13 Allergies Allergies: Coded Allergies: No Known Allergy (Unverified , 05/12/13) PMhx/Soc History of Surgery: Yes (cholecysectomy; rt ankle surgery;) Anesthesia Reaction: No Hx Neurological Disorder: No Hx Respiratory Disorders: No Hx Cardiac Disorders: Yes (HTN) Hx Psychiatric Problems: Yes (Anxiety and Depression) Hx Miscellaneous Medical Probl: Yes (DM2, HTN, GERD, depression.) Hx Alcohol Use: Yes Hx Substance Use: Yes Hx Tobacco Use: Yes FmHx Family History: No diabetes Physical Exam Vitals Vital Signs Date Time Temp Pulse Resp B/P Pulse Ox O2 Delivery O2 Flow Rate FiO2 07/25/17 20:31 98.0 86 20 136/61 98 Physical Exam INITIAL VITAL SIGNS: Reviewed by me GENERAL: Awake, alert and oriented x 4, well appearing, nontoxic, speaking in full sentences. No acute distress RESPIRATORY: Clear to auscultation bilaterally. Symmetric chest wall rise. No wheezing or rales. No accessory muscle use. CV: Regular rate and rhythm. No murmurs, rubs, or gallops. ABDOMEN: Soft, non-distended. Nontender. Negative [place]. Negative [place] point tenderness. No CVA tenderness bilaterally. No guarding. No rebound. : Under the left testicle there is an area of erythema and induration with scant drainage, no fluctuance, tender to palpation, approximately 2 cm in diameter Procedures/MDM 62-year-old male presents with area of cellulitis in his left testicle. He is not diabetic and he is otherwise healthy. This is been going on for 2 weeks. It is already open and draining so I do not believe further incision and drainage is warranted at this time. Patient was discharged with bacitracin, Keflex, Bactrim. Recommended 2 day wound check or sooner for worsening of symptoms. He was also given ibuprofen and small amount [place] for pain. He was also given a refill of pantoprazole that he uses for GERD per his request. Patient counseled regarding my diagnostic impression and care plan. Prior to discharge all questions answered. Pt agrees with treatment plan and understands strict return precautions. Pt is instructed to follow up with primary care provider within 24-48 hours. Precautionary instructions provided including instructions to return to the ER if not improving or for any worsening or changing symptoms or concerns. Departure Diagnosis: Primary Impression: Abscess Condition: Stable Patient Instructions: Abscess, Antiobiotic Treatment Only Additional Instructions: Call your primary care doctor TOMORROW for an appointment during the next 1-2 days.See the doctor sooner or return here if your condition worsens before your appointment time. Return in 48 hours for wound check or sooner for new or worsening sx. MARTHA JULIAN PA-C Jul 25, 2017 21:46
[2017-07-25 21:56] VITALS: BP 143/77; PULSE 84; RESP 19; TEMP 98.8
== END 2017-07-25 21:56 | disposition home or self-care (01) ==
LOC: FTE 20:18
DX: N45.4 Abscess of epididymis or testis (principal); I10 Essential (primary) hypertension; E11.9 Type 2 diabetes mellitus without complications; Z87.891 Personal history of nicotine dependence
CPT/HCPCS: 99284